=== PATIENT | female | born 1975 | race American Indian/Alaskan Native ===

== ENCOUNTER 2022-08-01 11:37 | Emergency (ER) | payer OTHER, SELFPAY ==
--- NOTE | 2022-08-01 11:42 | ED.SKABFB ---
HPI - Skin/Abscess/Foreign Bdy General Chief complaint: Wound/Laceration Stated complaint: open wound on side of left breast Time Seen by Provider: 08/01/22 11:42 Source: patient and RN notes reviewed History of Present Illness HPI narrative: Patient is a 46-year-old female who presents the urgent care with complaints of an open wound to the left breast. Patient states its been there for approximately a week and a half and just open this morning. Patient states that she does have a history of hydradenitis but this wound does not appear to be her typical abscesses. Patient states that she has been using Neosporin and Tylenol. States that the redness has increased. Denies of any fevers. No other acute complaints. No acute distress noted. Patient aware of the plan of care. Some parts of this dictation were generated by voice recognition software and may contain typographical and/or grammatical inaccuracies. Related Data Home Medications Medication Instructions Recorded Confirmed albuterol sulfate 90 mcg/actuation inhalation 08/01/22 aerosol inhaler atorvastatin 20 mg tablet mg 08/01/22 digoxin 125 mcg (0.125 mg) tablet mcg 08/01/22 doxepin 25 mg capsule mg 08/01/22 fluticasone 500 mcg-salmeterol 50 inhalation 08/01/22 mcg/dose blistr powdr for inhalation (Wixela Inhub) ipratropium bromide 17 inhalation 08/01/22 mcg/actuation HFA aerosol inhaler (Atrovent HFA) lamotrigine 200 mg tablet mg 08/01/22 metoprolol tartrate 25 mg tablet mg 08/01/22 omeprazole 20 mg capsule,delayed mg 08/01/22 release prazosin 2 mg capsule mg 08/01/22 quetiapine 300 mg tablet,extended mg PO 08/01/22 release 24 hr ranolazine 500 mg tablet,extended mg PO 08/01/22 release,12 hr ropinirole 2 mg tablet mg 08/01/22 Allergies Allergy/AdvReac Type Severity Reaction Status Date / Time Benzodiazepines AdvReac Other Verified 08/01/22 11:57 Review of Systems Review of Systems: CONSTITUTIONAL: Denies fever, chills, or sweats. EYES: Denies visual changes, redness, or discharge. ENT: Denies rhinorrhea, congestion, sore throat, or otalgia. CARDIOVASCULAR: Denies chest pain, palpitations, or edema. RESPIRATORY: Denies cough or dyspnea. GASTROINTESTINAL: Denies abdominal pain, nausea, vomiting, or diarrhea. GENITOURINARY: Denies dysuria or hematuria. SKIN: Reports of an open wound to the left breast MUSCULOSKELETAL: Denies back pain, joint pain, or myalgia. NEUROLOGIC: Denies headache, numbness, or weakness. All other systems reviewed are negative, except as documented in HPI. PMFSH Comments At the time of my signature, I reviewed and agree with the nursing past medical, surgical, social, and family history. There is no relevant family history pertinent to the patient complaint. Exam Narrative: GENERAL: This is a well-nourished, well-developed patient, in no apparent distress. HEAD: normocephalic, atraumatic. EYES: PERRL. Sclera clear/white. Vision is grossly intact. EARS: External ears normal NOSE: External nose normal with no obvious nasal discharge, nares without redness, no rhinorrhea. THROAT: Mucous membranes moist NECK: Neck supple SKIN: 2 x 2 open draining yellow serosanguineous fluid with necrotic regions to the left breast with surrounding 8 x 9 cm area of erythema and warmth NEURO: awake, alert, and oriented to person, place and time. There were no obvious focal neurologic abnormalities. EXTREMITIES: No clubbing, cyanosis, or edema. Course Course Level of Care: Express Care Visit Vital Signs Vital signs: Vital Signs Temperature 98.1 F 08/01/22 11:45 Pulse Rate 88 08/01/22 11:45 Respiratory Rate 18 08/01/22 11:45 Blood Pressure 100/68 08/01/22 11:45 Pulse Oximetry 98 08/01/22 11:45 Temperature 98.1 F 08/01/22 11:45 Pulse Rate 88 08/01/22 11:45 Respiratory Rate 18 08/01/22 11:45 Blood Pressure 100/68 08/01/22 11:45 Pulse Oximetry 98 08/01/22 11:45 Reviewed
[2022-08-01 11:45] VITALS: BP 100/68; PULSE 88; RESP 18; TEMP 36.7; O2SAT 98
== END 2022-08-01 12:05 | disposition short-term general hospital (02) ==
PROVIDERS: Emergency Provider Nurse Practitioner Family; PCP Nurse Practitioner
DX: S21.002A Unspecified open wound of left breast, initial encounter (principal); X58.XXXA Exposure to other specified factors, initial encounter; J44.9 Chronic obstructive pulmonary disease, unspecified; M79.7 Fibromyalgia
CPT/HCPCS: 99202; G0463

== ENCOUNTER 2023-09-28 13:28 | Outpatient (CLI) | payer OTHER, SELFPAY | END 2023-09-28 13:29 | disposition home or self-care (01) | LOC: ANHBWCAUD 13:28 | PROVIDERS: PCP Nurse Practitioner; Visit Provider Nurse Practitioner | DX: H90.3 Sensorineural hearing loss, bilateral (principal) | CPT/HCPCS: 92557; 92567 ==

== ENCOUNTER 2024-05-26 11:26 | Emergency (ER) | payer OTHER, SELFPAY ==
[2024-05-26 11:32] VITALS: BP 97/59; PULSE 83; RESP 18; TEMP 36.4; O2SAT 97
--- NOTE | 2024-05-26 11:32 | ED.WOUNDLAC ---
HPI - Wound/Laceration General Chief Complaint: Wound/Laceration Stated Complaint: cut right arm Time Seen by Provider: 05/26/24 11:34 Source: patient, RN notes reviewed and old records reviewed Mode of arrival: ambulatory Limitations: no limitations History of Present Illness HPI narrative: 48-year-old female presents to the [facility] with a laceration to the right upper arm. States that she cut it with a piece of glass. Unknown last tetanus Bleeding is controlled. Patient tetanus UTD: No Related Data Home Medications Medication Instructions Recorded Confirmed albuterol sulfate 90 mcg/actuation inhalation 08/01/22 aerosol inhaler atorvastatin 20 mg tablet mg 08/01/22 digoxin 125 mcg (0.125 mg) tablet mcg 08/01/22 doxepin 25 mg capsule mg 08/01/22 fluticasone 500 mcg-salmeterol 50 inhalation 08/01/22 mcg/dose blistr powdr for inhalation (Wixela Inhub) ipratropium bromide 17 inhalation 08/01/22 mcg/actuation HFA aerosol inhaler (Atrovent HFA) lamotrigine 200 mg tablet mg 08/01/22 metoprolol tartrate 25 mg tablet mg 08/01/22 omeprazole 20 mg capsule,delayed mg 08/01/22 release prazosin 2 mg capsule mg 08/01/22 quetiapine 300 mg tablet,extended mg PO 08/01/22 release 24 hr ranolazine 500 mg tablet,extended mg PO 08/01/22 release,12 hr ropinirole 2 mg tablet mg 08/01/22 budesonide 160 mcg-glycopyr 9 inh inhalation 05/26/24 mcg-formot 4.8 mcg/actuation HFA inhaler (Breztri Aerosphere) cariprazine 6 mg capsule (Vraylar) mg 05/26/24 famotidine 40 mg tablet mg 05/26/24 paroxetine HCl 30 mg tablet mg PO 05/26/24 Allergies Allergy/AdvReac Type Severity Reaction Status Date / Time Benzodiazepines AdvReac Other Verified 08/01/22 11:57 Review of Systems Review of Systems: All systems reviewed & are unremarkable except as noted in HPI and below Constitutional: Constitutional: Reports no additional constitutional complaints Eyes: Eyes: Reports no additional eye complaints ENT: Reports system reviewed and no additional complaints, except as documented Cardiovascular: Cardiovascular: Reports no additional cardiovascular complaints, Denies chest pain and Denies dyspnea Respiratory: Respiratory: Reports no additional respiratory complaints, Denies chest congestion, Denies cough and Denies dyspnea Gastrointestinal: Gastrointestinal: Reports no additional gastrointestinal complaints, Denies abdominal pain, Denies nausea and Denies vomiting Musculoskeletal: Musculoskeletal: Reports no additional musculoskeletal complaints Integumentary/Breasts: Skin/Breast: Reports as per HPI and Reports wounds Neurologic: Reports system reviewed and no additional complaints, except as documented Psychiatric: Psychiatric: Reports no additional psychiatric complaints Allergic/Immunologic: Allergic/Immunologic: Reports no additional allergic/immunologic complaints [facility] Past Medical History Medical History (Updated 05/26/24 @ 20:25 by Svitlana Garcia APRN) High cholesterol Comments At the time of my signature, I reviewed and agree with the nursing past medical, surgical, social, and family history. There is no relevant family history pertinent to the patient complaint. Exam Const: General: cooperative, no acute distress, well developed, alert, anxious, ill appearing chronically, uncomfortable and well nourished Nutritional Appearance: well nourished Orientation/consciousness: patient oriented x3 Limitations: no limitations HENMT: Head: normal to inspection Ears: hearing grossly normal bilaterally and external ears normal Face/Nose/Sinus: Normal external nose present, Normal nares present, Normal nasal mucous membranes and turbinates present, normal facial exam and face symmetric Face and sinus: normal facial exam and face symmetric Eyes: General: appearance normal, both eyes and all related structures Alignment and Position: alignment normal Periorbital: periorbital findings no
[2024-05-26] MEDS: TETANUS,DIPHTHERIA,AC PERTUSSIS ADULT (0.5 ML) BOOSTRIX IM (11:51)
== END 2024-05-26 11:58 | disposition home or self-care (01) ==
PROVIDERS: Emergency Provider Nurse Practitioner; PCP Nurse Practitioner
DX: S41.111A Laceration without foreign body of right upper arm, initial encounter (principal); W25.XXXA Contact with sharp glass, initial encounter; Z23 Encounter for immunization; E78.00 Pure hypercholesterolemia, unspecified
CPT/HCPCS: 90471; 90715; 99213; G0463

== ENCOUNTER 2025-09-02 12:12 | Emergency (ER) | payer OTHER, SELFPAY ==
--- OUTSIDE RECORDS SUMMARY | 2025-06-04 04:20 | XMS_ITS ---
Author Organization [facility] Address [address] [place] [address] Care Team Providers Care Vision Therapist Name Role Phone Kimani Crocker Primary Care Provider [phone] Allison Mcbride Unavailable [phone] REASON FOR VISIT 4 week f u- CW will be bringing Social History Sex Assigned At : Social History Observation Description Sex Assigned At Female Encounters Encounter Location Date Provider Diagnosis [address] [address] 06/04/2025 Allison Mcbride Plan Of Treatment Next Appt Details Provider Name:Allison garland, 09/12/2025 09:20:00 AM, [address] [facility], [place], [place], [address], Progress Notes * Ganga DAVIDDOB: [birth year] (50 yo F)Acc No.[id number]:06/04/2025 UNLOCKED PROGRESS NOTE Patient: Ranjit JESSICAMyrtle Ganga Provider: Faustina Mcbride, MSN, ORDER DEPARTMENT SUPERVISOR, DIRECTOR PHONE-C :1975 A ge:49 Y S ex:Female Date:06/04/2025 Address:[address], [address], [place], [place] Pcp:Kimani B Crocker Subjective: * Chief Complaints: * 1 . 4 week f u- CW will be bringing. * Medical History: Objective: * Vitals: Assessment: Plan: * Treatment: * * Electronic signature of Thang Mcbride , [id number] on 09/02/2025 at 12:15 PM GUN REPAIR CLERK Sign off status: Pending * Provider: Faustina Mcbride, VAN, ORDER DEPARTMENT SUPERVISOR, DIRECTOR PHONE-C Date: 0 06/04/2025 Generated for Gennaro barron/Spring/Baciliosmitting on: 11/02/2024 12:15 PM GUN REPAIR CLERK
--- OUTSIDE RECORDS SUMMARY | 2025-08-23 05:20 | XMS_ITS ---
Author Organization [facility] Address [address] [place] [address] Care Team Providers Care Machine Iii Coremaker Name Role Phone Kimani Crocker Primary Care Provider [phone] Allison Mcbride [phone] REASON FOR VISIT 4 week F/U Social History Sex Assigned At : Social History Observation Description Sex Assigned At Female Encounters Encounter Location Date Provider Diagnosis [address] [address] 08/23/2025 Kimani Crocker Plan Of Treatment Next Appt Details Provider Name:Allison garland, 09/12/2025 09:20:00 AM, [address] [facility], [place], [address], Progress Notes * Ganga DAVIDDOB: [birth year] (50 yo F)Acc No.[id number]:08/23/2025 UNLOCKED PROGRESS NOTE Progress Notes Patient: Ranjit PADILLA Ganga Provider: Bernadette Crocker :1975 A ge:50 Y S ex:Female Date:08/23/2025 Address:[address], [address], [place], [id number] Subjective: * Chief Complaints: * 1 . 4 week F/U. * Medical History: Objective: * Vitals: Assessment: Plan: * Treatment: * * Electronic signature of Geena Crocker , [id number] on 09/02/2025 at 12:15 PM MARKLOGIC DEVELOPER Sign off status: Pending * Provider: Bernadette Crocker Date: Generated for Gennaro barron/Spring/Gonzalo on: 11/02/2024 12:15 PM MARKLOGIC DEVELOPER
--- OUTSIDE RECORDS SUMMARY | 2025-08-31 04:40 | XMS_ITS ---
Author Organization [facility] Address [address] [place] [address] Care Team Providers Care Test Technician Name Role Phone Kimani Crocker Primary Care Provider [phone] Allison Mcbride Unavailable [phone] Allergies Allergen (clinical drug ingredient) Drug/Non Drug Allergy documented on EMR Reaction Allergy Type Onset Date Status benzodiazepine (FN) Benzodiazepines Unknown Drug Allergy Active REASON FOR VISIT 4 week follow up Medications Medication SIG (Take, Route, Frequency, Duration) Notes Start Date End Date Status Rexulti 2 MG 1 tablet Orally Once a day; Duration: 90 days Active Eszopiclone 2 MG 1 tablet immediately before bedtime Orally Once a day; Duration: 30 days Approval until 08/06/26. 08/06/2025 Active Albuterol Sulfate HFA 108 (90 Base) MCG/ACT INHALE 2 PUFFS EVERY FOUR HOURS; Duration: 16 Active PARoxetine HCl 40 MG 1 tablet in the morning Orally Once a day; Duration: 90 days Active Benztropine Mesylate 1 MG 1 tablet Orally Once a day; Duration: 90 days Active ZyPREXA Zydis 5 MG 1 tablet on the tongue and allow to dissolve Orally Once a day IF NEEDED; Duration: 90 days Active OLANZapine 5 mg DISSOLVE 1 TABLET BY MOUTH DAILY IF NEEDED; Duration: 30 Active lamoTRIgine 100 MG 2.5 tablets Orally Once a day; Duration: 90 days Active Mirtazapine 30 MG 1 tablet at bedtime Orally Once a day; Duration: 90 days Active Prazosin HCl 2 MG 2 capsules at bedtime Orally Once a day; Duration: 90 days Active Atorvastatin Calcium 20 mg TAKE 1 TABLET BY MOUTH DAILY; Duration: 28 days Active Phentermine HCl 37.5 MG 1 capsule Orally Once a day; Duration: 30 days 08/31/2025 Active Vitamin D3 50 MCG (1999) TAKE 1 TABLET BY MOUTH DAILY; Duration: 28 days Active Levothyroxine Sodium 75 MCG TAKE 1 TABLET BY MOUTH EVERY MORNING ON AN EMPTY STOMACH; Duration: 28 days Active Pantoprazole Sodium 40 MG 1 tablet 1/2 to 1 hour before morning meal Orally Once a day; Duration: 30 days FOR IBRAHIM'S ESOPHAGUS CONFIRMED BY BIOPSY 04/18/2025 Active Spiriva Respimat 2.5 MCG/ACT 2 puffs Inhalation Once a day Active Dulera 100-5 MCG/ACT as directed Inhalation Active Social History Tobacco Use: Social History Observation Description Date Details (start date - stop date) Current Smoker NA - NA Sex Assigned At : Social History Observation Description Sex Assigned At Female Alcohol Screen (Audit-C) Question Answer Notes Did you have a drink containing alcohol in the p ast year? Yes PRAPARE Question Answer Notes Date Completed/Updated: 04/13/2025 What is your current housing situation? I have h ousing Are you worried about losing your housing? No What is the highest level of school that you have finished? Less than a high school degree What is your current work situation? 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 Check all that apply I do not have problems meeting my needs Has lack of transportation k ept you from medical appointments, meetings, work or from getting things needed for daily living? No How often do you see or talk to people that you care about and feel close to? (For example: talking to friends on the phone, visiting friends or family, going to orthodox or club meetings) More than 5 times a week How stressed are you? Stress is when someone feels tense, nervous, anxious, or can\t sleep at night because their mind is troubled Somewhat In the past year have you sp ent more than 2 nights in a row in a senior living, fpc, fdc center, or juvenile correctional facility? No Do you feel physically and e motionally safe where you currently live? Yes In the past year, have you b een afraid of your partner or ex-partner? I have not had a partner in the past year PRAPARE Score: 6 Tobacco Control (Standard) Question Answer Notes Tobacco use: Current smoker How many cigarettes a day do you smoke? 21-30 Additional Findings: Tobacco user Rolls own cigarettes,Heavy cigarette smoker (20-39 cigs/day) Vital Signs Weight 210.0 lb lbs 08/31/2025 Height 61 in in 08/31/2025 BMI 39.67 kg/m2 08/31/2025 Blood pressure systolic 122 mm Hg 08/31/20 25 Blood pressure diastolic 70 mm Hg 025 Heart Rate 105 /min 08/31/2025 Oximetry 96 % 08/31/2025 Respiratory Rate 18 /min 08/31/2025 Encounters Encounter Location Date Provider Diagnosis [address] [place] [address] 08/31/2025 Kimani Crocker Obesity (BMI 30-39.9) E66.9 Assessments Encounter Date Diagnosis (ICD Code) Assessment Notes Treatment Notes Treatment Clinical Notes Section Notes 08/31/2025 Obesity (BMI 30-39.9) (ICD-10 - E66.9) Plan Of Treatment Medication Medication Name Sig Start Date Stop Date Notes Phentermine HCl 37.5 MG 1 capsule Orally Once a day; Duration: 30 days 08/31/2025 Next Appt Details Follow Up: 2 Months, Reason: wt control Provider Name:Allison garland, 09/12/2025 09:20:00 AM, [address] [place] [address] , [place], [address], Progress Notes * Ganga DAVIDDOB: [birth year] (50 yo F)Acc No.[id number]:08/31/2025 UNLOCKED PROGRESS NOTE Progress Notes Patient: Ganga ZIMMER Provider: Bernadette Crocker :1975 A ge:50 Y S ex:Female Date:08/31/2025 Address:[address], [address], [place], [place]-[id number] Check In:10:41 AM 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 4 week follow up. * HPI: I nterim History: Emergency room visit N o. Was hospitalized N o. F/u wt loss. Ran out of phentermine. Was helping appetite. Eating more fruits and vegetables. Not doing exercise. Trying some chair yoga. [employer] found breast mass. Having bx soon. CAM to do injections in back 09/29. Had f/u screening CT of lungs. No issues reported. D epression Screening: PHQ-9 L ittle interest or pleasure in doing things?Nearly every day F eeling down, depressed, or hopeless N early every day T rouble falling or staying asleep, or sleeping too much N early every day F eeling tired or having little energy N early every day P oor appetite or overeating N early every day F eeling bad about yourself or that you are a failure, or have let yourself or your family down N early every day T rouble concentrating on things, such as reading the newspaper or watching television N early every day M oving or speaking so slowly that other people could have noticed; or the opposite, being so fidgety or restless that you have been moving around a lot more than usual N ot at all T houghts that you would be better off or of hurting yourself in some way N ot at all T otal Score 2 1 I nterpretation S evere Depression Intervention D epression Screening Findings P ositive F ollow-Up for Depression N o Referral necessary, patient involved in behavioral health treatment . S creening: Harney Suicide Severity Rating Scale (LF) D o you want to initiate with S creener form 1 . Wish to be : Have you wished you were or wished you could go to sleep and not wake up? N o 2 . Suicidal Thoughts: Have you actually had any thoughts of killing yourself? N o 6 . Suicide Behavior Question: Have you ever done anything,started to do anything, or prepared to end your life? N o I nterpretation: L ow Risk C SSRS Interpretation and Follow Up Plan: CSSRS Interpretation and Follow Up Plan C SSRS Screen documented using SF Y es R isk Disposition from SF L ow - No Follow Up Plan Required F ollow Up Plan N o Follow Up Plan required at this time. T imeframe of Screening T armen * ROS: B asic ROS: Denies W eight loss or gain. * Medical History: B ipolar, Ptsd, Copd, Multiple personality disorder, Fybromyalgia, Arthritis, Asthma, Spinal stinosis, Degenerative disk, Herniated disk. * Surgical History: T ubes tied 1997, heart ablasion 2002, heart ablasion 2006, cardiac cath 2016, cardiac cath 2021, cholecystectomy 03/2023, tumor removed R thumb . * Hospitalization/Major Diagno stic Procedure: 2 births 1993, vaginal 1995, vaginal 1997, abscess to face 11/2020, vertigo - [facility] 04/2023. * Family History: F ather: . M other: . 3 son(s) , 1 daughter(s) - healthy. . Mother: : committed suicide 2 half brother: thyroid issues Son: possible undiagnosed bipolar. * Social History: P nany Social History: L iving Arrangement L iving Arrangement: I ndependent Living Alcohol Use A lcohol Use Frequency: N ever Illicit Substance Usage I llicit Substance Usage: Y es S ubstance Used: C annabis Employment Status E mployment Status: O n Disability Single Question Alcohol Screening H ow many times in the past year have you had (4 for women, or 5 for men) or more drinks in a day? 0 S ocial Determinants: P RAPARE D ate Completed/Updated: 0 04/13/2025 W hat is your current housing situation? I have housing A re you worried about losing your housing??No W hat is the highest level of school that you have finished? L ess than a high school degree W hat is your current work situation? 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 Check all that apply I do not have problems meeting my needs H as lack of transportation kept you from medical appointments, meetings, work or from getting things needed for daily living? N o H ow often do you see or talk to people that you care about and feel close to? (For example: talking to friends on the phone, visiting friends or family, going to orthodox or club meetings) M ore than 5 times a week H ow stressed are you? Stress is when someone feels tense, nervous, anxious, or can\t sleep at night because their mind is troubled S omewhat I n the past year have you spent more than 2 nights in a row in a senior living, fpc, fdc center, or juvenile correctional facility? N o D o you feel physically and emotionally safe where you currently live? Y es I n the past year, have you been afraid of your partner or ex-partner? I have not had a partner in the past year P RAPARE Score: 6 T obacco Use: T obacco Control (Standard) T obacco use: C urrent smoker H ow many cigarettes a day do you smoke? 2 1-30 A dditional Findings: Tobacco user R olls own cigarettes,Heavy cigarette smoker (20-39 cigs/day) D rugs/Alcohol: D rugs H ave you used drugs other than those for medical reasons in the past 12 months? N o Alcohol Screen (Audit-C) D id you have a drink containing alcohol in the past year? Y es M iscellaneous: D omestic violence: No. Method of learning P referred method of learning: Myrtle camacho,Discussion,Hearing * Medications: T aking Spiriva Respimat 2.5 MCG/ACT Aerosol Solution 2 puffs Inhalation Once a day , Taking Dulera 100-5 MCG/ACT Aerosol as directed Inhalation , Taking Pantoprazole Sodium 40 MG Tablet Delayed Release 1 tablet 1/2 to 1 hour before morning meal Orally Once a day , Notes to Pharmacist: FOR IBRAHIM'S ESOPHAGUS CONFIRMED BY BIOPSY, Taking Atorvastatin Calcium 20 mg Tablet TAKE 1 TABLET BY MOUTH DAILY , Taking Vitamin D3 50 MCG (2000 UT) Tablet TAKE 1 TABLET BY MOUTH DAILY , Taking Levothyroxine Sodium 75 MCG Tablet TAKE 1 TABLET BY MOUTH EVERY MORNING ON AN EMPTY STOMACH , Taking OLANZapine 5 mg Tablet Disintegrating DISSOLVE 1 TABLET BY MOUTH DAILY IF NEEDED , Taking lamoTRIgine 100 MG Tablet 2.5 tablets Orally Once a day , Taking Mirtazapine 30 MG Tablet 1 tablet at bedtime Orally Once a day , Taking Prazosin HCl 2 MG Capsule 2 capsules at bedtime Orally Once a day , Taking ZyPREXA Zydis 5 MG Tablet Disintegrating 1 tablet on the tongue and allow to dissolve Orally Once a day IF NEEDED , Taking PARoxetine HCl 40 MG Tablet 1 tablet in the morning Orally Once a day , Taking Benztropine Mesylate 1 MG Tablet 1 tablet Orally Once a day , Taking Rexulti 2 MG Tablet 1 tablet Orally Once a day , Taking Eszopiclone 2 MG Tablet 1 tablet immediately before bedtime Orally Once a day , Notes to Pharmacist: Approval until 08/06/26., Taking Albuterol Sulfate HFA 108 (90 Base) MCG/ACT Aerosol Solution INHALE 2 PUFFS EVERY FOUR HOURS , Taking Phentermine HCl 37.5 MG Capsule 1 capsule Orally Once a day * Allergies: B enzodiazepines. Objective: * Vitals: I nitials: dt, Wt:210.0 lb, Ht: 61 in, BMI:39.67, BP:122/70, HR:105, Oxygen sat %:96, RR:18, LMP: taran, Pain scale:8. * Examination: G eneral Examination: GENERAL APPEARANCE: w ell developed, well nourished, in no acute distress. Assessment: * Assessment: 1. O besity (BMI 30-39.9) - E66.9 (Primary) Plan: * Treatment: * Recommended Wellness and Pre vention Guidelines: * S berenice casas L ast Done N ext Due A ction Taken N ONCOMPLIANT A lcohol use screening - 1 - - N ONCOMPLIANT A sthma symptom assessment - 1 - - N ONCOMPLIANT B reast cancer screening - 1 - - N ONCOMPLIANT C ervical cancer screening - 1 - - N ONCOMPLIANT C holesterol control (genl pop) 0 04/16/2025 1 - - N ONCOMPLIANT C olorectal cancer screening - 1 - - N ONCOMPLIANT D epression followup 1 1 - - N ONCOMPLIANT H IV screening - 1 - - N ONCOMPLIANT I nfluenza vaccine (over 50) 1 1 - - * Procedure Codes: 3 008F BODY MASS INDEX DOCD, [address] [facility] [address], [place], [address] BEHAV CHNG SMOKING 3-10 MIN * Preventive Medicine: Counseling: C are goal follow-up plan: BMI management provided Y es Above Normal BMI Follow-up L ifestyle education regarding diet S MOKING: Patient counselled on the dangers of tobacco use and urged to quit. 1 . * Follow Up: 2 Months (Reason: wt control) * * Electronic signature of Geena dada Crocker , [id number] on 09/02/2025 at 12:15 PM BOILERMAKER FITTER Sign off status: Pending * Provider: eBrnadette Crocker Date: Generated for Gennaro barron/Spring/Gonzalo on: 11/02/2024 12:15 PM BOILERMAKER FITTER History and Physical Notes * HPI (History of Present Illness) Category Sub-Category Detail Notes Category Not es Interim History Was hospitalized No F/u wt loss. Ran out of phentermine. Was helping appetite. Eating more fruits and vegetables. Not doing exercise. Trying some chair yoga. [employer]GER [employer] found breast mass. Having bx soon. CAM to do injections in back 09/29. Had f/u screening CT of lungs. No issues reported. Emergency room visit No Depression Screening PHQ-9 Little inte rest or pleasure in doing things: Nearly every day Feeling down, depressed, or hopeless: Ne faby every day Trouble falling or staying asleep, or sl eeping too much: Nearly every day Feeling tired or having little energy: N early every day Poor appetite or overeating: Nearly ever y day Feeling bad about yourself o r that you are a failure, or have let yourself or your family down: Nearly every day Trouble concentrating on thi ngs, such as reading the newspaper or watching television: Nearly every day Moving or speaking so slowly that other people could have noticed; or the opposite, being so fidgety or restless that you have been moving around a lot more than usual: Not at all Thoughts that you would be b adam off or of hurting yourself in some way: Not at all Total Score: 21 Interpretation: Severe Depression Intervention Depression Screening Findings: P ositive Follow-Up for Depression: No Referral necessary, patient involved in behavioral health treatment . Screening Harney Suicide Sev erity Rating Scale (LF) Do you want to initiate with: Screener form 1. Wish to be : Have you wished you were or wished you could go to sleep and not wake up?: No 2. Suicidal Thoughts: Have you actually had any thoughts of killing yourself?: No 6. Suicide Behavior Question: Have you ever done anything,started to do anything, or prepared to end your life?: No Interpretation:: Low Risk CSSRS Interpretation and Follow Up Plan CSSRS Interpretation and Follow Up Plan CSSRS Screen documented using SF: Yes Risk Disposition from SF: Low - No Follo w Up Plan Required Follow Up Plan: No Follow Up Plan requir ed at this time. Timeframe of Screening: Today Examination Category Sub-Category Detail Notes Category Not es General Examination GENERAL APPEARANCE: well dev eloped, well nourished, in no acute distress
--- OUTSIDE RECORDS SUMMARY | 2025-09-02 12:15 | XMS_ITS | Encounter Summary ---
Author Organization [facility] Address [address] [place] [address] Care Team Providers Care Stonecutter Assistant Name Role Phone Mj Leigh MD Unavailable [phone] José Miguel Blake DMD Unavailable [phone] Kimani Crocker MD Primary Care Provider [phone] Encounter Details Date Type Department Care Team (Late st Contact Info) Description 08/30/2025 Results Follow-Up [facility] Pulmonary at [address] [place] [address] Marline Thomas, DIPLOMA MAKER [address] [place] [address] [address] [place] [address] CT Lung Cancer Screening Social History Tobacco Use Types Packs/Day Years Used Date Smoking Tobacco: Every Day Cigarettes 0.5 34.8 Started: 09/08/1990; Last attempted to quit: 09/01/2022 Smokeless Tobacco: Never Comments:Smoking History Pac ks/day: 1 Packs, Counseling given, contact pcp for assistance with quitting 08/18/23 reports smoking 10-15 cigarettes per day 01/18/24 reports 15 cigarettes a day x 6 months Alcohol Use Standard Drinks/Week Comments Not Currently 0 (1 standard drink = 0.6 oz pur e alcohol) PHQ-2 Answer Date Recorded PHQ-2 Total Score (If total score is 3 or more points, staff should administer the PHQ-9) 0 10/11/2020 AUDIT-C Answer Date Recorded Q1: How often do you have a drink containing alc ohol? Never 08/27/2025 Average Number of Drinks Not on file 025 Frequency of Binge Drinking Not on file 08/02 Personal Safety Answer Date Recorded Have you ever been in or are you currently in a harmful physical or emotional relationship or is someone making you feel afraid or unsafe? 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 Author CCM Chronic Pain Care Plan Chronic Care Management No Blanca Deluca, RN Note: Problem: Chronic Pain Goals: 1. Minimize further functional decline 2. Maximize quality of life 3. Control pain Strategies: - Activity/exercise program recommendation - Conservative stepwise pain medicine strategy with multi-disciplinary approach - Recommend healthy lifestyle strategies and compensatory methods as needed documented as of this encounter Visit Diagnoses Not on filedocumented in this encounter Care Teams Stonecutter Assistant Relationship Specialty Start Date End Date Kimani Crocker MD [address] [place] [id number] PCP - General Internal Medicine 05/14/25 Mj Leigh MD Consulting Physician Cardiology 10/14/20 José Miguel Blake DMD [address] [place] [id number] Surgeon Oral Surgery 02/23/21 documented as of this encounter
--- OUTSIDE RECORDS SUMMARY | 2025-09-02 12:15 | XMS_ITS | Clinical Summary ---
Author Organization [facility] Address [address] [place] [address] Phone Care Team Providers Care [employer] System Name Role Phone Mj Leigh MD Unavailable [phone] Crispin Cool MD Unavailable [phone] Adilson Hu MD Unavailable [phone] Kimani Crocker MD Primary Care Provider [phone] Allergies Active Allergy Reactions Criticality Noted Date Comments Diazepam Other (see Comments) 10/11/2016 PSYCHOSIS Alprazolam Other (see Comments) 12/05/2015 psychosis Medications busPIRone (BUSPAR) 5 MG Tablet Take 30 mg by mouth 2 times daily. Active aspirin 325 MG TabletIndication s:Insomnia due to medical condition,Fibrom yalgia,Thrombocy tosis Take 325 mg by mouth daily. Active Apple Cider Vinegar 500 MG TabletIndication s:Insomnia due to medical condition,Fibrom yalgia,Thrombocy tosis Take 500 mg by mouth 2 times daily. Active Doxycycline Monohydrate 100 MG Capsule Take by mouth 2 times daily. 7 Active Benzoyl Peroxide 10 % Liquid Use as wash for axilla, inframammilary, buttocks, and inguinal area 1-2 times daily. 7 Active erythromycin with ethanol 2 % Solution Apply. 7 Active Cyanocobalamin (VITAMIN B 12 PO) Take by mouth daily. Active chlorzoxazone (PARAFON FORTE) 500 MG Tablet Take 0.5 Tabs by mouth 2 times daily as needed for Muscle spasms. 60 Tab 3 9 Active vitamin D (CHOLECALCIFEROL ) 1000 UNIT Tablet Take 50,000 Units by mouth daily. Active nitroGLYCERIN (NITROSTAT) 0.4 MG SL Tablet 1 Tab by Sublingual route every 5 minutes as needed for Chest pain. 10 Tab 9 Active metoprolol tartrate (LOPRESSOR) 100 MG Tablet Take 1 Tab by mouth 2 times daily. 180 Tab 3 9 Active levothyroxine (SYNTHROID) 75 MCG Tablet TAKE ONE TABLET BY MOUTH EVERY DAY 90 Tab 2 9 Active furosemide (LASIX) 20 MG TabletIndication s:Dependent edema TAKE ONE TABLET BY MOUTH EVERY DAY NEEDED FOR SWELLING 90 Tab 2 9 Active fluticasone (FLONASE) 50 MCG/ACT Suspension USE 2 SPRAYS IN EACH NOSTRIL DAILY DIRECTED 16 g 8 9 Active ziprasidone (GEODON) 20 MG CapsuleIndicatio ns:Schizophrenia , unspecified type TAKE ONE CAPSULE BY MOUTH TWICE A DAY WITH MEALS 60 Cap 9 Active DULoxetine (CYMBALTA) [address] Particles TAKE TWO CAPSULES BY MOUTH EVERY DAY 60 Cap 9 Active nicotine (NICODERM CQ) 21 MG/24HR PATCH 24 HR 1 Patch by Transdermal route every 24 hours. 28 Patch 9 Active ALBUTEROL 108 (90 Base) MCG/ACT Aerosol Solution INHALE TWO PUFFS BY MOUTH EVERY 6 HOURS NEEDED FOR WHEEZING 2 Inhaler 0 Active fluticasone-salm eterol (ADVAIR) 250-50 MCG/DOSE AEROSOL POWDER, BREATH ACTIVATED INHALE ONE PUFF BY MOUTH TWICE A DAY 60 Each 5 0 Active gabapentin (NEURONTIN) 300 MG CapsuleIndicatio ns:Fibromyalgia Take 1 Cap by mouth 4 times daily. 120 Cap 3 0 Active topiramate (TOPAMAX) 25 MG Tablet TAKE TWO TABLETS BY MOUTH TWICE A DAY 120 Tab 3 0 Active dilTIAZem (CARDIZEM CD) 180 MG CAPSULE SR 24 HRIndications:Te ndinitis Take 1 Cap by mouth daily. 90 Cap 1 0 Active meloxicam (MOBIC) 15 MG TabletIndication s:Tendinitis Take 1 Tab by mouth daily. 90 Tab 1 0 Active potassium chloride CR (KLORCON) 10 MEQ Tablet Controlled ReleaseIndicatio ns:Hypothyroidis m, unspecified type Take 1 Tab by mouth daily. 90 Tab 3 0 Active Active Problems Problem Noted Date Diagnosed Date Bipolar disorder 02/22/2019 COPD (chronic obstructive pulmonary disease) PTSD (post-traumatic stress disorder) 02/22/2019 Schizophrenia 02/22/2019 History of substance abuse 02/22/2019 Hidradenitis suppurativa 02/22/2019 Hypothyroidism 02/22/2019 Mild intermittent asthma without complication Leukemoid reaction 04/12/2017 Thrombocytosis 04/12/2017 Insomnia due to medical condition 03/01/2017 Vitamin D deficiency 01/19/2017 Migraine with aura and witho ut status migrainosus, not intractable 12/08/2016 Tobacco use disorder 11/25/2016 Non morbid obesity due to excess calories 2016 Chronic pain 10/28/2016 Fibromyalgia 10/28/2016 Left shoulder pain 10/28/2016 Tremor 10/28/2016 Memory loss 10/28/2016 Tendonitis of elbow, right Overview (10/15/2015): Will treat with nsaids and eccentric exercises for now Cubital tunnel syndrome Overview (10/15/2015): Not likely contributing to her main symptoms at this point Resolved Problems Problem Noted Date Diagnosed Date Resolved Date Cough 11/25/2016 02/22/2019 Cocaine abuse 11/25/2016 02/22/2019 Encounters Date Type Department Care Team Description 06/26/2025 Documentation Only [facility] [address] [place] [address] Kimani Crocker MD from Last 3 Months Immunizations Immunization Administration Dates Next Due Influenza Vaccine 08/21/2016 Influenza Vaccine greater than 3 yrs 08/21/2016 Influenza Vaccine, Quadrivalent, PF 07/21/2019,1 ,09/09/2015 Influenza Vaccine,unspecified Formulation 2015 Influenza, Seasonal, Injectable, Undefined 09/01 Pneumococcal Vaccine - 13 Valent 08/21/2016 Pneumococcal Vaccine Adult - 23 Valent 6,09/16/2012 Pneumococcal Vaccine, Unspec ified Formulation 08/20/2016 Family History Medical History Relation Name Comments Cancer Brother bone Breast Cancer Maternal Aunt 1 Breast Cancer Maternal Aunt 2 Breast Cancer Maternal Aunt 3 Breast Cancer Mother Relation Name Status Comments Brother Father Maternal Aunt 1 Maternal Aunt 2 Maternal Aunt 3 Mother Social History Tobacco Use Types Packs/Day Years Used Date Smoking Tobacco: Every Day Cigarettes Smokeless Tobacco: Never Tobacco Cessation:Ready to Q uit: No; Counseling Given: Yes Alcohol Use Standard Drinks/Week Comments Yes 0 (1 standard drink = 0.6 oz pur e alcohol) occasionally PHQ-2 Answer Date Recorded PHQ-2 Score 21 07/11/2019 Comments No Sex and Gender Information Value Date Recorded Sex Assigned at Not on file Legal Sex Female 11:39 PM CDT Gender Identity Not on file Sexual Orientation Not on file Last Filed Vital Signs Vital Sign Reading Time Taken Comments Blood Pressure 102/69 10/11/2020 10:15 PM PROCUREMENT DIRECTOR Pulse 76 10/11/2020 10:15 PM PROCUREMENT DIRECTOR Temperature 37.2 C (98.9 F) 10/11/2020 10:25 PM PROCUREMENT DIRECTOR Respiratory Rate 19 10/11/2020 10:1 5 PM PROCUREMENT DIRECTOR Oxygen Saturation 97% 10/11/2020 10: 15 PM PROCUREMENT DIRECTOR Inhaled Oxygen Concentration - - Weight 78.8 kg (173 lb 11.2 oz) 07/21/2019 2:08 PM CDT Height 156.2 cm (5' 1.5) 07/21/2019 2:08 PM CDT Body Mass Index 32.29 07/21/2019 2:08 PM CDT Plan of Treatment Health Maintenance Due Date Last Done Comments Hepatitis B Immunization (1 of 3 - 19+ 3-dose series) 1994 Pap Smear 1996 Cervical Cancer Screening (CCS) 2005 HPV/Cotest 2005 Cologuard 2020 Immunochemical Fecal Occult Blood 2020 Mammogram 07/07/2024 07/07/2023, 04/02, 07/19/2020, Additional history exists Influenza Immunization (#1) 07/02/202509/01, 10/14/2022, 09/09/2021, Additional history exists SARS-COV-2 Immunization ( season) 2025 09/15/2023, 11/08/2021, 03/20/2021, Additional history exists Zoster Immunization (1 of 2) 2025 Colonoscopy 06/09/2034 06/09/2024 Colorectal Cancer Screening 06/09/2034 Respiratory Syncytial Virus (RSV) Immunization (Adult) (1 - 1-dose 75+ series) 2050 Hepatitis C Virus (HCV) Screening Completed 07/21/2019 Pneumococcal Immunization (50+ years) Completed 10/14/2022, 08/21/2016, 08/21/2016, Additional history exists Pneumococcal Immunization Combined Discontinued 10/14/2022, 08/21/2016, 08/21/2016, Additional history exists Discussion re Starting/Frequency of Mammograms Discontinued 01/21/2024, 08/16/2023, 07/07/2023, Additional history exists TdaP Immunization Completed 05/26/2024 Human Papillomavirus (HPV) Immunization Aged Out No longer eligible based on patient's age to complete this topic Meningococcal Immunization (ACWY) Aged Out No longer eligible based on patient's age to complete this topic Rotavirus Immunization Aged Out No lo nger eligible based on patient's age to complete this topic Procedures Procedure Name Priority Date/Time Associated Diagnosis Comments CHASIDY SCREENING BILATERAL DIGITAL W CAD W SHADI Routine 04/22/2022 5:33 PM CDT Encounter for screening mammogram for malignant neoplasm of breast HEPATITIS PANEL ACUTE (AHP) Routine 07/21/2019 3:16 PM CDT Exposure to hepatitis C from Last 3 Months or Most Recently Relevant to Health Maintenance Results * CHASIDY SCREENING BILATERAL DIGITAL W CAD W SHADI (04/22/2022 5:33 PM CDT) Anatomical Region Laterality Modality breast Bilateral Mammography 04/22/2022 5:14 PM CDT Narrative 04/30/2022 5:25 PM CDT - CHASIDY SCREENING BILATERAL DIGITAL W CAD W SHADI BILATERAL DIGITAL SCREENING MAMMOGRAM 3D/2D WITH CAD WITH MEDIOLATERAL OBLIQUE CRANIOCAUDAL: 04/22/2022 The study was acquired using digital technology and interpreted from soft copy. Current study was also evaluated with ICAD version 7.2. 2D digital mammographic views, as well as 3D digital tomosynthesis were performed in the CC and MLO projections. CLINICAL: Routine screening. Patient has no breast complaints. Personal history of cervical cancer. Mother and three maternal aunts with breast cancer. COMPARISONS: Comparison is made to exams dated: 11/13/2016 [facility], 12/09/2009 [facility], and 07/19/2020 [facility]. BREAST TISSUE:There are scattered fibroglandular densities in both breasts. FINDINGS: No significant masses, calcifications, or other findings are seen in either breast. There has been no significant interval change. IMPRESSION: BI-RAD 1 NEGATIVE There is no mammographic evidence of malignancy. A 1 year screening mammogram is recommended. A letter will be sent to the patient with these results. The patient will be entered into a reminder system with a target due date of 1 year for her next screening exam. Electronically signed by: Chris castaneda/grant:04/30/2022 16:49:30 Garment Worker(s): RT Jos(Myrtle)(M), [facility] letter sent: Normal Exam Reading location: [facility] BI-RADS: 1 Negative Procedure Note Chris Steve MD - 04/30/2022 - CHASIDY SCREENING BILATERAL DIGITAL W CAD W SHADI BILATERAL DIGITAL SCREENING MAMMOGRAM 3D/2D WITH CAD WITH MEDIOLATERAL OBLIQUE CRANIOCAUDAL: 04/22/2022 The study was acquired using digital technology and interpreted from soft copy. Current study was also evaluated with ICAD version 7.2. 2D digital mammographic views, as well as 3D digital tomosynthesis were performed in the CC and MLO projections. CLINICAL: Routine screening. Patient has no breast complaints. Personal history of cervical cancer. Mother and three maternal aunts with breast cancer. COMPARISONS: Comparison is made to exams dated: 11/13/2016 [facility], 12/09/2009 [facility], and 07/19/2020 [facility]. BREAST TISSUE:There are scattered fibroglandular densities in both breasts. FINDINGS: No significant masses, calcifications, or other findings are seen in either breast. There has been no significant interval change. IMPRESSION: BI-RAD 1 NEGATIVE There is no mammographic evidence of malignancy. A 1 year screening mammogram is recommended. A letter will be sent to the patient with these results. The patient will be entered into a reminder system with a target due date of 1 year for her next screening exam. Electronically signed by: Chris castaneda/penrad:04/30/2022 16:49:30 Garment Worker(s): RT Jos(R)(M), [facility] letter sent: Normal Exam Reading location: [facility] BI-RADS: 1 Negative us Joaquin Padilla MD IMG MAMMO ORDERABLES F inal Result * HEPATITIS PANEL ACUTE (AHP) (07/21/2019 3:16 PM CDT) HEPATITIS A IGM ANTIBODY NON DETECTED NON DETECTED 07/21/2019 10:16 PM CDT [facility] Comment: IGM Antibodies to HAV not detected. Does not exclude early acute or recovered HAV infection. HEP B CORE AB (IGM) NON DETECTED NON DETECTED 07/21/2019 10:16 PM CDT [facility] Comment: IGM anti-HBC not detected. Does not exclude the possibility of exposure to or infection with HBV. HEPATITIS B SURFACE ANTIGEN NON DETECTED NON DETECTED 07/21/2019 10:16 PM CDT [facility] Comment: A nonreactive test result does not exclude the possibility of exposure to or infection with Hepatitis B virus. A nonreactive test result in individuals with prior exposure to hepatitis B may be due to antigen levels below the detection limit of this assay or lack of antigen reactivity to the antibodies in this assay. hepatitis C antibody 0.18 <1 S/CO 07/21/2019 10:16 PM CDT [facility] Comment: Signal/Cutoff ratio < 0.79 is Nondetected Signal/Cutoff ratio 0.80-0.99 is Grayzone Signal/Cutoff ratio > 0.99 is Detected Supplemental assays are recommended if signal/cutoff ratio is >/=1.00. Signal/cutoff ratio result >/= 5.00 is 97% predictive of positivity for recombinant immunoblot assay (RIBA) and will be reported to the [place] [facility] Public [facility] as required. Blood specimen (specimen) Venipuncture / Unknown 07/21/2019 3:16 PM CDT 07/21/2019 3:16 PM CDT us Mario Foster APRN, CNP HEMATOLOGY ORDER RUFINO Final Result [facility] [address] [place] [address], [place] from Last 3 Months or Most Recently Relevant to Health Maintenance Insurance [employer] Care Teams Advanced Seal Delivery System Relationship Specialty Start Date End Date Kimani Crocker MD [address] [place] [address] PCP - General Internal Medicine 04/13/25 Mj Leigh MD Behavioral Health Director 08/20/17 Crispin Cool MD [address] [place] [address] [address] [place] [address] Consulting Physician Psychiatry 08/20/17 Adilson Hu MD [address] [place] [address] [address] [place] [address] Consulting Physician Dermatology 08/20/17
--- OUTSIDE RECORDS SUMMARY | 2025-09-02 12:16 | XMS_ITS | Patient Health Record ---
Author Organization [facility] Address [address] [place] [address] Care Team Providers Care Rn Pediatric Icu Name Role Phone Kimani Crocker Primary Care Provider [phone] Allison Mcbride Unavailable [phone] Ayad Sutherland Unavailable [phone] Muriel Nieto Unavailable [phone] Zoey Brooks Unavailable [phone] Jackie Lee Unavailable [phone] Allergies Allergen (clinical drug ingredient) Drug/Non Drug Allergy documented on EMR Reaction Allergy Type Onset Date Status benzodiazepine (FN) Benzodiazepines Unknown Drug Allergy Active Results Component Value Reference Range Notes CBC With Differential/Platel et* Reviewed date:04/20/2025 09:07:41 AM Interpretation: Performing Lab:[facility], [address], [place], Phone - [phone], Director - PhDR[facility] Notes/Report: WBC 14.5 3.4-10.8 x10E3/uL RBC 4.66 3.77-5.28 x10E6/uL Hemoglobin 15.2 11.1-15.9 g/dL Hematocrit 46.7 34.0-46.6 % MCV 100 79-97 fL MCH 32.6 26.6-33.0 pg MCHC 32.5 31.5-35.7 g/dL RDW 14.3 11.7-15.4 % Platelets 363 150-450 x10E3/uL Neutrophils 72 Not Estab. % Lymphs 20 Not Estab. % Monocytes 6 Not Estab. % Eos 1 Not Estab. % Basos 1 Not Estab. % Neutrophils (Absolute) 10.4 1.4-7.0 x10E3/uL Lymphs (Absolute) 3.0 0.7-3.1 x10E3/uL Monocytes(Absolute) 0.9 0.1-0.9 x10E3/uL Eos (Absolute) 0.1 0.0-0.4 x10E3/uL Baso (Absolute) 0.1 0.0-0.2 x10E3/uL Immature Granulocytes 0 Not Estab. % Immature Grans (Abs) 0.0 0.0-0.1 x10E3/uL Iron and TIBC* Reviewed date:04/20/2025 09:07:41 AM Interpretation: Performing Lab:[facility] [address], Phone - [phone], Director - [facility] Notes/Report: Iron Bind.Cap.(TIBC) 329 250-450 ug/dL UIBC 257 131-425 ug/dL Iron 72 27-159 ug/dL Iron Saturation 22 15-55 % TSH Rfx on Abnormal to Free T4 Reviewed date:04/20/2025 09:07:41 AM Interpretation: Performing Lab:[facility] [address], Phone - [phone], Director - [facility] Notes/Report: TSH 2.970 0.450-4.500 uIU/mL CMP 14 Comprehensive Metabol ic Panel* Reviewed date:04/20/2025 09:07:41 AM Interpretation: Performing Lab:[facility] [address], Phone - [phone], Director - [facility] Notes/Report: Glucose 70 70-99 mg/dL BUN 11 6-24 mg/dL Creatinine 0.79 0.57-1.00 mg/dL eGFR 92 >59 mL/min/1.73 BUN/Creatinine Ratio 14 9-23 Sodium 139 134-144 mmol/L Potassium 4.6 3.5-5.2 mmol/L Chloride 104 96-106 mmol/L Carbon Dioxide, Total 18 20-29 mmol/L Calcium 9.1 8.7-10.2 mg/dL Protein, Total 6.4 6.0-8.5 g/dL Albumin 4.2 3.9-4.9 g/dL Globulin, Total 2.2 1.5-4.5 g/dL Bilirubin, Total 0.3 0.0-1.2 mg/dL Alkaline Phosphatase 102 44-121 IU/L AST (SGOT) 25 0-40 IU/L ALT (SGPT) 29 0-32 IU/L Vitamin B12 and Folate Reviewed date:04/20/2025 09:07:41 AM Interpretation: Performing Lab:[facility] [place], [address] [facility] Phone - [phone], Director - [facility] Notes/Report: Vitamin B12 795 234-6573 pg/mL Folate (Folic Acid), Serum 14.2 >3.0 ng/mL A serum folate concentration of less than 3.1 ng/mL is considered to represent clinical deficiency. Hemoglobin A1c* Reviewed date:04/20/2025 09:07:41 AM Interpretation: Performing Lab:[facility] [place], [address] [facility], Phone - [phone], Director - [facility] Notes/Report: Hemoglobin A1c 5.4 4.8-5.6 % . Prediabetes: 5.7 - 6.4 Diabetes: >6.4 Glycemic control for adults with diabetes: <7.0 Reason For Referral Reason under breasts and in femoral creases, recurrent, possible hidradenitis Diagnosis 1 Boils (L02.92) Referral Organization [facility] Referring Provider First Name Kimani Referring Provider Last Name Lizzette Referring Provider Speciality Internal M edicine Referred Provider Specialty Dermatology Referral Priority Routine Medications Medication SIG (Take, Route, Frequency, Duration) Notes Start Date End Date Status Rexulti 2 MG 1 tablet Orally Once a day; Duration: 90 days Active Atorvastatin Calcium 20 mg TAKE 1 TABLET BY MOUTH DAILY; Duration: 28 days Active Eszopiclone 2 MG 1 tablet immediately before bedtime Orally Once a day; Duration: 30 days Approval until 08/06/26. 08/06/2025 Active Phentermine HCl 37.5 MG 1 capsule Orally Once a day; Duration: 30 days 08/31/2025 Active Vitamin D3 50 MCG (2000 UT) TAKE 1 TABLET BY MOUTH DAILY; Duration: 28 days Active Albuterol Sulfate HFA 108 (90 Base) MCG/ACT INHALE 2 PUFFS EVERY FOUR HOURS; Duration: 16 Active Levothyroxine Sodium 75 MCG TAKE 1 TABLET BY MOUTH EVERY MORNING ON AN EMPTY STOMACH; Duration: 28 days Active ZyPREXA Zydis 5 MG 1 tablet on the tongue and allow to dissolve Orally Once a day IF NEEDED; Duration: 90 days Active Spiriva Respimat 2.5 MCG/ACT 2 puffs Inhalation Once a day Active PARoxetine HCl 40 MG 1 tablet in the morning Orally Once a day; Duration: 90 days Active Dulera 100-5 MCG/ACT as directed Inhalation Active Benztropine Mesylate 1 MG 1 tablet Orally Once a day; Duration: 90 days Active Pantoprazole Sodium 40 MG 1 tablet 1/2 to 1 hour before morning meal Orally Once a day; Duration: 30 days FOR MEJIAS'S ESOPHAGUS CONFIRMED BY BIOPSY 04/18/2025 Active OLANZapine 5 mg DISSOLVE 1 TABLET BY MOUTH DAILY IF NEEDED; Duration: 30 Active lamoTRIgine 100 MG 2.5 tablets Orally Once a day; Duration: 90 days Active Mirtazapine 30 MG 1 tablet at bedtime Orally Once a day; Duration: 90 days Active Prazosin HCl 2 MG 2 capsules at bedtime Orally Once a day; Duration: 90 days Active Immunizations Vaccine Route Administration Date Status Comme nts COVID-19 Moderna 1ST IM Intramuscular 02/20/2021 Administered COVID-19 Moderna 2nd IM Intramuscular 03/20/2021 Administered EUA date 10/2020. Screening reviewed and consent signed. Patient tolerated well. FLU VAC NO PRSV 4VAL 6 mo+ IM Intramuscular 09/09/2021 Administered Pt tolerated well. Voiced no questions or concerns at present time. FLU VAC NO PRSV 4VAL 6 mo+ Unknown 10/14/2022 Administered FLU VAC NO PRSV 4VAL 6 mo+ IM Intramuscular 08/22/2024 Administered Sydnie Carrillo 08/22/2024 01:15 PM CDT >Given in RMD, tolerated well. Pneumococcal 20-valent Unknown 10/14/2022 Administered Social History Tobacco Use: Social History Observation [...] your current housing situation? I have h jarrettg Are you worried about losing your housing? No What is the highest level of school that you have finished? Less than a high school degree What is your current work situation? [employer] unemployed but not seeking work (ex. 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 Stress is when someone feels tense, nervous, anxious, or can\t sleep at night because their mind is troubled Somewhat In the past year have you sp ent more than 2 nights in a row in a longterm, senior living, custodial center, or juvenile correctional facility? 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 Problems Problem Type SNOMED Code ICD Code Onset Dates Problem Status W/U Status Risk Notes Problem Tobacco user (731102778) Nicotine dependence, unspecified, uncomplicated (F17.200) Active confirmed Problem Chronic pain (03683602) Other chronic pain (G89.29) Active confirmed Problem COPD - Chronic obstructive pulmonary disease (30079049) COPD (chronic obstructive pulmonary disease) (J44.9) Active confirmed Problem Bipolar 1 disorder (334785157) Bipolar 1 disorder (F31.9) 022 Active confirmed Problem Akathisia (634410576) Akathisia (G25.71) Active confirmed Problem Sleep disorder (72011848) Sleep disorder (G47.9) Active confirmed Problem Neuropathy (359841099) Neuropathy (G62.9) Active confirmed Problem Overweight (037184484) Over weight (E66.3) Active confirmed Problem Dementia (44347049) Dementia (F03.90) Active co nfirmed Problem Obesity (597607724) Obesity (BMI 30-39.9) (E66.9) Active confirmed Problem Posttraumatic stress disorder (17298153) Post traumatic stress disorder (PTSD) (F43.10) Active confirmed Problem Drug monitoring done (000492811) Therapeutic drug monitoring (Z51.81) Active confirmed Problem Hypothyroidism (15011064) Hypothyroidism, unspecified type (E03.9) Active confirmed Problem Mejias's esophagus (913889743) Mejias's esophagus determined by endoscopy (K22.70) Active confirmed Problem Uncomplicated moderate persistent asthma (785483278) Moderate persistent asthma without complication (J45.40) Active confirmed Problem Gastroesophageal reflux disease without esophagitis (707480105) Gastroesophageal reflux disease without esophagitis (K21.9) Active confirmed Problem Generalized anxiety disorder (78975718) Anxiety, generalized (F41.1) Active confirmed Problem Urinary tract infectious disease (02309616) UTI symptoms (R39.9) Active confirmed Problem Restless legs (96715462) Restless leg (G25.81) Active confirmed Problem Amnesia (01926462) Memory change s (R41.3) Active confirmed Vital Signs Heart Rate 105 /min 08/31/2025 Temperature 97.6 degrees Fahrenheit 07/19/2025 Respiratory Rate 18 /min 08/31/2025 Oximetry 96 % 08/31/2025 Blood pressure diastolic 70 mm Hg 08/31/2025 Height 61 in in 08/31/2025 Blood pressure systolic 122 mm Hg 08/31/2025 Weight 210.0 lb lbs 08/31/2025 BMI 39.67 kg/m2 08/31/2025 Encounters Encounter Location Date Provider Diagnosis [address] [place] [address] 08/31/2025 Kimani Crocker Obesity (BMI 30-39.9) E66.[address] [place] [address] 09/27/2024 Allison Mcbride Bipolar 1 disorder F31.9 ; Anxiety, generalized F41.1 ; Sleep disorder G47.9 ; Dementia F03.90 ; Post traumatic stress disorder (PTSD) F43.10 and Akathisia G25.71 [facility] [address] [place] [address] [place] [address] 10/31/2024 Allison Mcbride Bipolar 1 disorder F31.9 ; Anxiety, generalized F41.1 ; Sleep disorder G47.9 ; Dementia F03.90 ; Post traumatic stress disorder (PTSD) F43.10 and Akathisia G25.[address] [address] 01/25/2025 Allison Mcbride Bipolar 1 disorder F31.9 ; Anxiety, generalized F41.1 ; Sleep disorder G47.9 ; Dementia F03.90 ; Post traumatic stress disorder (PTSD) F43.10 and Akathisia G25.[address] [place] [address] 03/28/2025 Allison Mcbride [address] [place] [address] 04/12/2025 Allison Mcbride Bipolar 1 disorder F31.9 ; Anxiety, generalized F41.1 ; Sleep disorder G47.9 ; Dementia F03.90 ; Post traumatic stress disorder (PTSD) F43.10 and Akathisia G25.[address] [place] [address] 04/18/2025 Kimani Crocker Mejias's esophagus determined by endoscopy K22.70 ; Restless leg G25.81 ; Hypothyroidism, unspecified type E03.9 ; Bipolar 1 disorder F31.9 ; COPD (chronic obstructive pulmonary disease) J44.9 ; Moderate persistent asthma without complication J45.40 ; Orthostatic hypotension I95.1 ; Neuropathy G62.9 and Dementia F03.[address] [address] 05/22/2025 Kimani Crocker Obesity (BMI 30-39.9) E66.[address] [address] 06/18/2025 Allison Reed Over weight E66.3 ; Bipolar 1 disorder F31.9 ; Anxiety, generalized F41.1 ; Sleep disorder G47.9 ; Dementia F03.90 ; Post traumatic stress disorder (PTSD) F43.10 and Akathisia G25.[address] [address] 07/19/2025 Kimani Crocker Obesity (BMI 30-39.9) E66.[address] [address] 08/06/2025 Allison Reed Over weight E66.3 ; Bipolar 1 disorder F31.9 ; Anxiety, generalized F41.1 ; Sleep disorder G47.9 ; Dementia F03.90 ; Post traumatic stress disorder (PTSD) F43.10 and Akathisia G25.[address] [address] 09/18/2024 Ayad Sutherland [address] [address] 09/21/2024 Ayad Sutherland Anxiety, generalized F41.1 ; Post traumatic stress disorder (PTSD) F43.10 ; Bipolar 1 disorder F31.9 ; Sleep disorder G47.9 and Akathisia G25.[address] [address] 09/21/2024 Ayad Sutherland [address] [address] 10/05/2024 Jackie Lee [address] [address] 01/23/2025 Allison Mcbride Sleep disorder G47.9 ; Anxiety, generalized F41.1 and Dementia F03.[address] [address] 04/17/2025 Allison Mcbride [address] [address] 04/25/[address] [address] 06/05/2025 Kimani Crocker Dental infection K04.[address] [address] 06/14/2025 [facility] [address], [place] [address] 06/18/[address] [address] 06/28/2025 Muriel Nieto Sleep disorder G47.[address] [address] 07/04/2025 Allison Mcbride Sleep disorder G47.[address] [address] 07/17/2025 Allison Mcbride Sleep disorder G47.[address] [address] 08/02/2025 Kimanilesvia Crocker Boils L02.92 [facility] [address] [place] [address] 08/06/2025 [facility] [address], [place] [address] 08/13/2025 Allison Reed [address] [place] [address] 08/15/2025 Kimani Crocker Obesity (BMI 30-39.9) E66.9 Assessments Encounter Date Diagnosis (ICD Code) Assessment Notes Treatment Notes Treatment Clinical Notes Section Notes 05/22/2025 Obesity (BMI 30-39.9) (ICD-10 - E66.9) 06/05/2025 Dental infection (ICD-10 - K04.7) 07/19/2025 Obesity (BMI 30-39.9) (ICD-10 - E66.9) RECOMMENDED CHAIR YOGA A STARTER PROGRAM. 08/02/2025 Boils (ICD-10 - L02.92) 06/18/2025 Over weight (ICD-10 - E66.3) 06/28/2025 Sleep disorder (ICD-10 - G47.9) 07/04/2025 Sleep disorder (ICD-10 - G47.9) 07/17/2025 Sleep disorder (ICD-10 - G47.9) 08/06/2025 Over weight (ICD-10 - E66.3) 08/15/2025 Obesity (BMI 30-39.9) (ICD-10 - E66.9) 08/31/2025 Obesity (BMI 30-39.9) (ICD-10 - E66.9) 04/18/2025 Mejias's esophagus determined by endoscopy (ICD-10 - K22.70) 04/18/2025 Restless leg (ICD-10 - G25.81) 09/27/2024 Anxiety, generalized (ICD-10 - F41.1) Decreasing mirtazapine for sedation to aid with sleep. May look to increase Paxil for anxiety if needed. 10/31/2024 Bipolar 1 disorder (ICD-10 - F31.9) Less motor aggitation noted with Rexulti, continue. Internal and physical restlessness noted with Vraylar 01/23/2025 Sleep disorder (ICD-10 - G47.9) 01/25/2025 Bipolar 1 disorder (ICD-10 - F31.9) Less motor aggitation noted with Rexulti, continue. Likely TD with restlessness noted, worsened by ropinirole (further linking likelihood of TD) Plan for client to come in for AIMS and likely start Austedo- discussed plan with client and she v/u. Internal and physical restlessness noted with Vraylar 04/12/2025 Bipolar 1 disorder (ICD-10 - F31.9) Less motor aggitation noted with Rexulti, continue. Internal and physical restlessness noted with Vraylar Wosened be ropinerole 09/21/2024 Anxiety, generalized (ICD-10 - F41.1) 09/27/2024 Bipolar 1 disorder (ICD-10 - F31.9) Less motor aggitation noted with Rexulti, continue. Internal and physical restlessness noted with Vraylar 09/21/2024 Post traumatic stress disorder (PTSD) (ICD-10 - F43.10) 10/31/2024 Anxiety, generalized (ICD-10 - F41.1) Increase Paxil for anxiety and depression continue mirtazapine at 30mg- was not sleeping well at 45mg 01/23/2025 Anxiety, generalized (ICD-10 - F41.1) 09/27/2024 Sleep disorder (ICD-10 - G47.9) Pt reports that she has been falling asleep well since starting the Ramelteon. Pt denies side effects to meds. Pt has tried Ambien, Lunesta, Melatonin and Trazodone in the past with no improvement. 04/18/2025 Hypothyroidism, unspecified type (ICD-10 - E03.9) 06/18/2025 Bipolar 1 disorder (ICD-10 - F31.9) Less motor aggitation noted with Rexulti, continue. Internal and physical restlessness noted with Vraylar Wosened be ropinerole 04/12/2025 Anxiety, generalized (ICD-10 - F41.1) Continue Paxil for anxiety and depression continue mirtazapine at 30mg- was not sleeping well at 45mg 01/25/2025 Anxiety, generalized (ICD-10 - F41.1) Continue Paxil for anxiety and depression continue mirtazapine at 30mg- was not sleeping well at 45mg 08/06/2025 Bipolar 1 disorder (ICD-10 - F31.9) Less motor aggitation noted with Rexulti, continue. Internal and physical restlessness noted with Vraylar Wosened be ropinerole 06/18/2025 Anxiety, generalized (ICD-10 - F41.1) Continue Paxil for anxiety and depression continue mirtazapine at 30mg- was not sleeping well at 45mg 08/06/2025 Anxiety, generalized (ICD-10 - F41.1) Continue Paxil for anxiety and depression continue mirtazapine at 30mg- was not sleeping well at 45mg 04/18/2025 Bipolar 1 disorder (ICD-10 - F31.9) 04/12/2025 Sleep disorder (ICD-10 - G47.9) Pt reports that she had been falling asleep well since starting the Ramelteon. Pt denies side effects to meds. Pt has tried Ambien, Lunesta, Melatonin and Trazodone in the past with no improvement. Reports lessened sleep lately- increase to 2 tabs. 09/27/2024 Dementia (ICD-10 - F03.90) Continue for aggitation and bipolar disorder. Take as prescribed. Reviewed purpose (irritability, mood stability), benefits, and risks - low blood pressure, metabolic syndrome with high cholesterol or high blood sugars, change in cardiac conduction, nausea, vomiting, temporary or permanent movement disorders, and akathisia. Client has tried Seroquel and Vraylar in the past, SGAs. 01/23/2025 Dementia (ICD-10 - F03.90) 10/31/2024 Sleep disorder (ICD-10 - G47.9) Pt reports that she has been falling asleep well since starting the Ramelteon. Pt denies side effects to meds. Pt has tried Ambien, Lunesta, Melatonin and Trazodone in the past with no improvement. 01/25/2025 Sleep disorder (ICD-10 - G47.9) Pt reports that she has been falling asleep well since starting the Ramelteon. Pt denies side effects to meds. Pt has tried Ambien, Lunesta, Melatonin and Trazodone in the past with no improvement. 09/21/2024 Bipolar 1 disorder (ICD-10 - F31.9) 09/21/2024 Sleep disorder (ICD-10 - G47.9) 01/25/2025 Dementia (ICD-10 - F03.90) Continue for aggitation and bipolar disorder. Take as prescribed. Reviewed purpose (irritability, mood stability), benefits, and risks - low blood pressure, metabolic syndrome with high cholesterol or high blood sugars, change in cardiac conduction, nausea, vomiting, temporary or permanent movement disorders, and akathisia. Client has tried Seroquel and Vraylar in the past, SGAs. 10/31/2024 Dementia (ICD-10 - F03.90) Continue for aggitation and bipolar disorder. Take as prescribed. Reviewed purpose (irritability, mood stability), benefits, and risks - low blood pressure, metabolic syndrome with high cholesterol or high blood sugars, change in cardiac conduction, nausea, vomiting, temporary or permanent movement disorders, and akathisia. Client has tried Seroquel and Vraylar in the past, SGAs. 09/27/2024 Post traumatic stress disorder (PTSD) (ICD-10 - F43.10) Pt reports that her night terrors are under control at this time. 04/12/2025 Dementia (ICD-10 - F03.90) Continue for aggitation and bipolar disorder. Take as prescribed. Reviewed purpose (irritability, mood stability), benefits, and risks - low blood pressure, metabolic syndrome with high cholesterol or high blood sugars, change in cardiac conduction, nausea, vomiting, temporary or permanent movement disorders, and akathisia. Client has tried Seroquel and Vraylar in the past, SGAs. 04/18/2025 COPD (chronic obstructive pulmonary disease) (ICD-10 - J44.9) 08/06/2025 Sleep disorder (ICD-10 - G47.9) Increase dose as client reports this works well but not lasting long, monitor for any SE. PDMP checked without concerns. Ramelteon with some improvement for a few months, then stopped working Pt has tried Melatonin and Trazodone in the past with no improvement. Ambien with improvement in the past, not recommended at this time with known links to memory concerns and client already dx with dementia 06/18/2025 Sleep disorder (ICD-10 - G47.9) Pt reports that she had been falling asleep well since starting the Ramelteon in past, not sleeping anymore, start Lunesta. Pt denies side effects to meds. Pt has tried Melatonin and Trazodone in the past with no improvement. Ambien with improvement in the past, not recommended at this time with known links to memory concerns and client already dx with dementia, start Lunesta. 06/18/2025 Dementia (ICD-10 - F03.90) Continue for aggitation and bipolar disorder. Take as prescribed. Reviewed purpose (irritability, mood stability), benefits, and risks - low blood pressure, metabolic syndrome with high cholesterol or high blood sugars, change in cardiac conduction, nausea, vomiting, temporary or permanent movement disorders, and akathisia. Client has tried Seroquel and Vraylar in the past, SGAs. 08/06/2025 Dementia (ICD-10 - F03.90) Continue for aggitation and bipolar disorder. Take as prescribed. Reviewed purpose (irritability, mood stability), benefits, and risks - low blood pressure, metabolic syndrome with high cholesterol or high blood sugars, change in cardiac conduction, nausea, vomiting, temporary or permanent movement disorders, and akathisia. Client has tried Seroquel and Vraylar in the past, SGAs. 04/12/2025 Post traumatic stress disorder (PTSD) (ICD-10 - F43.10) Pt reports that her night terrors are under control at this time. 04/18/2025 Moderate persistent asthma without complication (ICD-10 - J45.40) 10/31/2024 Post traumatic stress disorder (PTSD) (ICD-10 - F43.10) Pt reports that her night terrors are under control at this time. 01/25/2025 Post traumatic stress disorder (PTSD) (ICD-10 - F43.10) Pt reports that her night terrors are under control at this time. 09/27/2024 Akathisia (ICD-10 - G25.71) Pt reports restlessness and pacing at times; symptoms have appeared to be akathisia. Propranolol was not used as pt takes Digoxin daily May look to d/c benztropine if appropriate with change to Rexulti. 09/21/2024 Akathisia (ICD-10 - G25.71) 04/12/2025 Akathisia (ICD-10 - G25.71) Pt reports restlessness and pacing at times; symptoms shown as akathisia in the past, AIMS noted, increase benztropine for restlessness- monitor for any worsening in movements and stop this medication if that is noted. Discussed risk of TD with SGAs and that movements can become permanent. Client v/u. Propranolol was not used as pt takes Digoxin daily 01/25/2025 Akathisia (ICD-10 - G25.71) Pt reports restlessness and pacing at times; symptoms shown as akathisia in the past, likely TD noted from discussions with client- she is to f/u with an AIMS test with RN at [facility] and have following appt with QUALITY REVIEW SPECIALIST in-office for further assessment. Propranolol was not used as pt takes Digoxin daily 10/31/2024 Akathisia (ICD-10 - G25.71) Pt reports restlessness and pacing at times; symptoms have appeared to be akathisia. Propranolol was not used as pt takes Digoxin daily May look to d/c benztropine if appropriate with change to Rexulti. 04/18/2025 Orthostatic hypotension (ICD-10 - I95.1) 08/06/2025 Post traumatic stress disorder (PTSD) (ICD-10 - F43.10) Pt reports that her night terrors are under control at this time. 06/18/2025 Post traumatic stress disorder (PTSD) (ICD-10 - F43.10) Pt reports that her night terrors are under control at this time. 08/06/2025 Akathisia (ICD-10 - G25.71) Discussed risk of TD with SGAs and that movements can become permanent. Client v/u. Propranolol was not used as pt takes Digoxin daily 04/18/2025 Neuropathy (ICD-10 - G62.9) 06/18/2025 Akathisia (ICD-10 - G25.71) Discussed risk of TD with SGAs and that movements can become permanent. Client v/u. Propranolol was not used as pt takes Digoxin daily 04/18/2025 Dementia (ICD-10 - F03.90) 09/27/2024 Other Reasons, potential benefits, potential risks, interactions and side effects of all medications were discussed. The Patient/Guardian asked appropriate questions, appeared to understand the answers, and decided to accept the treatment and continue being followed. Alternatives and expected course without treatment were reviewed. The Patient/Guardian is aware of the need to contact the office or return for an earlier appointment if any problems or concerns arise. May also contact the 24-hour crisis hotline ([facility]), refer to the closest emergency room or call 911 if new symptoms arise of existing symptoms worsen. The Patient/Guardian is aware that this would apply to symptoms like: suicidal ideation, homicidal ideation, high risk behaviors, manic symptoms, psychotic symptoms, physical symptoms, or any other symptoms that may be dangerous to self or others. Greater than 50% of time spent on coordination and counseling where psychopharmacology as well as psychotherapeutic interventions were discussed along with review of treatments in the past. Education provided concerning need for adequate hydration. Patient/Guardian verbalized understanding of education, treatment plan and follow up. This session was completed telephonically with client/parental/guard nichole consent: Unable to determine movement status, assess appearance, affect, AIMS, or vital signs. 10/31/2024 Other Reasons, potential benefits, potential risks, interactions and side effects of all medications were discussed. The Patient/Guardian asked appropriate questions, appeared to understand the answers, and decided to accept the treatment and continue being followed. Alternatives and expected course without treatment were reviewed. The Patient/Guardian is aware of the need to contact the office or return for an earlier appointment if any problems or concerns arise. May also contact the 24-hour crisis hotline ([facility]), refer to the closest emergency room or call 911 if new symptoms arise of existing symptoms worsen. The Patient/Guardian is aware that this would apply to symptoms like: suicidal ideation, homicidal ideation, high risk behaviors, manic symptoms, psychotic symptoms, physical symptoms, or any other symptoms that may be dangerous to self or others. Greater than 50% of time spent on coordination and counseling where psychopharmacology as well as psychotherapeutic interventions were discussed along with review of treatments in the past. Education provided concerning need for adequate hydration. Patient/Guardian verbalized understanding of education, treatment plan and follow up. This session was completed telephonically with client/parental/guard nichole consent: Unable to determine movement status, assess appearance, affect, AIMS, or vital signs. 03/28/2025 Other Emy MCKEE, [employer] 03/28/2025 05:03:47 PM CDT >AIMS completed and scanned into pt docs. 04/12/2025 Other Reasons, potential benefits, potential risks, interactions and side effects of all medications were discussed. The Patient/Guardian asked appropriate questions, appeared to understand the answers, and decided to accept the treatment and continue being followed. Alternatives and expected course without treatment were reviewed. The Patient/Guardian is aware of the need to contact the office or return for an earlier appointment if any problems or concerns arise. May also contact the 24-hour crisis hotline ([facility]), refer to the closest emergency room or call 911 if new symptoms arise of existing symptoms worsen. The Patient/Guardian is aware that this would apply to symptoms like: suicidal ideation, homicidal ideation, high risk behaviors, manic symptoms, psychotic symptoms, physical symptoms, or any other symptoms that may be dangerous to self or others. Greater than 50% of time spent on coordination and counseling where psychopharmacology as well as psychotherapeutic interventions were discussed along with review of treatments in the past. Education provided concerning need for adequate hydration. Patient/Guardian verbalized understanding of education, treatment plan and follow up. This session was completed telephonically with client/parental/guard nichole consent: Unable to determine movement status, assess appearance, affect, AIMS, or vital signs. 06/18/2025 Other Reasons, potential benefits, potential risks, interactions and side effects of all medications were discussed. The Patient/Guardian asked appropriate questions, appeared to understand the answers, and decided to accept the treatment and continue being followed. Alternatives and expected course without treatment were reviewed. The Patient/Guardian is aware of the need to contact the office or return for an earlier appointment if any problems or concerns arise. May also contact the 24-hour crisis hotline ([facility]), refer to the closest emergency room or call 911 if new symptoms arise of existing symptoms worsen. The Patient/Guardian is aware that this would apply to symptoms like: suicidal ideation, homicidal ideation, high risk behaviors, manic symptoms, psychotic symptoms, physical symptoms, or any other symptoms that may be dangerous to self or others. Greater than 50% of time spent on coordination and counseling where psychopharmacology as well as psychotherapeutic interventions were discussed along with review of treatments in the past. Education provided concerning need for adequate hydration. Patient/Guardian verbalized understanding of education, treatment plan and follow up. 08/06/2025 Other Reasons, potential benefits, potential risks, interactions and side effects of all medications were discussed. The Patient/Guardian asked appropriate questions, appeared to understand the answers, and decided to accept the treatment and continue being followed. Alternatives and expected course without treatment were reviewed. The Patient/Guardian is aware of the need to contact the office or return for an earlier appointment if any problems or concerns arise. May also contact the 24-hour crisis hotline ([facility]), refer to the closest emergency room or call 911 if new symptoms arise of existing symptoms worsen. The Patient/Guardian is aware that this would apply to symptoms like: suicidal ideation, homicidal ideation, high risk behaviors, manic symptoms, psychotic symptoms, physical symptoms, or any other symptoms that may be dangerous to self or others. Greater than 50% of time spent on coordination and counseling where psychopharmacology as well as psychotherapeutic interventions were discussed along with review of treatments in the past. Education provided concerning need for adequate hydration. Patient/Guardian verbalized understanding of education, treatment plan and follow up. This session was completed telephonically with client/parental/guard nichole consent: Unable to determine movement status, assess appearance, affect, AIMS, or vital signs. 06/05/2025 Other Learning About the Safe Use of Antibiotics material was discussed. Pt was educated on use of antibiotic medication including dosing, side effects, adverse effects and anticipated response. Pt was also educated on importance of completing full course of treatment as ordered. Patient voiced understanding of all. Plan Of Treatment Next Appt Details Provider Name:Allison garland, 09/12/2025 09:20:00 AM, [address] [facility] , [place], [address], Insurance Providers Payer Name Payer Address Payer Phone Subscriber Number Group Number Insured Name Patient Relationship to Insured Coverage Start Date Coverage End Date [facility] Attn Claims Department [address] [place] [id number] [phone] [id number] Ganga Wyatt Self - patient is the insured [address] [facility] Attn Claims Department [address] [place] [address] [phone] [id number] Ganga Wyatt Self - patient is the insured 1 [facility] Attn Claims Department [address] [place] [address] [phone] [id number] RaquelBryon gonzalesroberto Self - patient is the insured 1 [facility] Attn Claims Department [address] [place] [address] [phone] [id number] Ganga Wyatt Self - patient is the insured 1 Medical (General) History Medical History History ICD Code bipolar ptsd copd multiple personality disorder fybromyalgia arthritis asthma spinal stinosis degenerative disk herniated disk Surgical History Surgery Date(Month/Year) Tubes tied 1997 heart ablasion 2002 heart ablasion 2006 cardiac cath 2016 cardiac cath 2021 cholecystectomy 03/2023 tumor removed R thumb Hospitalization History Reason Date(Month/Year) [facility] 04/2023 abscess to face 11/2020 vaginal 1997 vaginal 1995 2 births 1994
--- OUTSIDE RECORDS SUMMARY | 2025-09-02 12:16 | XMS_ITS | Clinical Summary ---
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 Sculptor Name Role Phone Mj Leigh MD Unavailable [phone] José Miguel Blake DMD Unavailable Kimani Crocker MD Primary Care Provider [phone] Allergies Active Allergy Reactions Criticality Noted Date Comments Alprazolam Mental status changes Low psychosis Benzodiazepines Mental status changes Low 2 Mental psychosis Tissue Adhesive Rash,Redness Medium 03/26/2023 Steri strip Medications levothyroxine (SYNTHROID) 75 mcg tabletIndications: hypothyroidism Take 1 tablet (75 mcg total) by mouth mill oiler before breakfast Active digoxin (LANOXIN) 125 mcg (0.125 mg) tabletIndications: Paroxysmal Supraventricular Tachycardia Take 1 tablet (125 mcg total) by mouth mill oiler before breakfast Active atorvastatin (LIPITOR) 20 mg tabletIndications: hyperlipidemia Take 1 tablet (20 mg total) by mouth daily Active lamoTRIgine (LaMICtal) 200 mg tabletIndications: Bipolar Disorder in Remission Take 1 tablet (200 mg total) by mouth mill oiler before breakfast 022 Active prazosin (MINIPRESS) 2 mg capsuleIndications :Chronic PTSD with Trauma Nightmares,Post Traumatic Stress Disorder Take 1 capsule (2 mg total) by mouth nightly 023 Active OLANZapine (ZyPREXA ZYDIS) 5 mg disintegrating tabletIndications: Bipolar Disorder,Depressio n Treatment Adjunct,Schizophre arian Take 1 tablet (5 mg total) by mouth nightly Active sertraline (ZOLOFT) 100 mg tablet daily Active famotidine (PEPCID) 40 mg tablet Active pyridoxine (VITAMIN B6) 25 mg tabletIndications: Vitamin B6 deficiency Take 0.5 tablets (12.5 mg total) by mouth daily 15 tablet Active donepeziL (ARICEPT) 10 mg tabletIndications: Memory changes TAKE 1 TABLET BY MOUTH EVERY NIGHT 28 tablet Active mometasone-formote rol (DULERA 100) 100-5 mcg/actuation inhaler Inhale 2 puffs 2 (two) times a day Rinse mouth with water after use. Do not swallow. 1 each 025 2025 Active tiotropium bromide (SPIRIVA RESPIMAT) 2.5 mcg/actuation inhaler Inhale 2 puffs daily 1 each 2025 Active albuterol HFA (PROVENTIL HFA,VENTOLIN HFA,PROAIR HFA) 90 mcg/actuation inhalerIndications :Centrilobular emphysema Inhale 2 puffs every 6 (six) hours as needed for wheezing 18 g 6 Active Symbicort 80-4.5 mcg/actuation inhalerIndications :Asthma, unspecified asthma severity, unspecified whether complicated, unspecified whether persistent INHALE 2 PUFFS TWICE A DAY RINSE MOUTH AFTER USE 10.2 g 025 Active eszopiclone (LUNESTA) 2 mg tablet Active mirtazapine (REMERON) 30 mg tablet Active albuterol HFA (PROVENTIL HFA,VENTOLIN HFA,PROAIR HFA) 90 mcg/actuation inhaler Inhale 2 puffs every 6 (six) hours as needed for wheezing 2024 Discontinued( Reorder) meclizine (ANTIVERT) 25 mg tabletIndications: Vertigo Take 1 tablet (25 mg total) by mouth 3 (three) times a day as needed for dizziness Collaborating physician James Marin MD 30 tablet 023 2024 Discontinued( Therapy completed) midodrine (PROAMATINE) 10 mg tabletIndications: Symptomatic Orthostatic Hypotension Take 1 tablet (10 mg total) by mouth 2 (two) times a day 2024 Discontinued( Therapy completed) methocarbamoL (ROBAXIN) 500 mg tablet Take 1 tablet (500 mg total) by mouth 2 (two) times a day 20 tablet 024 2024 Discontinued( Therapy completed) lubiprostone (AMITIZA) 8 mcg capsule Take 1 capsule (8 mcg total) by mouth 2 (two) times a day with meals Take with meals 60 capsule 11 2024 Discontinued( Therapy completed) lubiprostone (AMITIZA) 8 mcg capsule Take 1 capsule (8 mcg total) by mouth 2 (two) times a day with meals Take with meals 60 capsule 1 2024 Discontinued( Therapy completed) mirtazapine (REMERON) 45 mg tabletIndications: major depressive disorder Take 1 tablet (45 mg total) by mouth nightly 2024 Discontinued ranolazine ER (RANEXA) 500 mg 12 hr tablet 2024 Discontinued( Therapy completed) Vraylar 6 mg capsule 2024 Discontinued( Therapy completed) rOPINIRole (REQUIP) 4 mg tablet 2024 Discontinued( Therapy completed) senna-docusate (PERICOLACE) 8.6-50 mg Take 1 tablet by mouth 2 (two) times a day 60 tablet 024 2024 Discontinued( Therapy completed) PARoxetine (PAXIL) 30 mg tablet daily 2024 Discontinued( Therapy completed) benztropine (COGENTIN) 1 mg tablet 025 2024 Discontinued( Therapy completed) Rexulti 2 mg tablet daily 025 2024 Discontinued( Therapy completed) pantoprazole DR (PROTONIX) 40 mg EC tablet Take 1 tablet (40 mg total) by mouth daily 30 tablet 3 025 2024 Discontinued( Therapy completed) metFORMIN XR (GLUCOPHAGE XR) 500 mg 24 hr tablet daily 2024 Discontinued( Therapy completed) ramelteon (ROZEREM) 8 mg tablet 2024 Discontinued( Therapy completed) ibuprofen (ADVIL,MOTRIN) 800 mg tablet 2024 Discontinued( Therapy completed) acetaminophen-code ine (TYLENOL #2) 300-15 mg per tablet 2024 Discontinued( Therapy completed) mirabegron ER (MYRBETRIQ) 50 mg tablet extended release 24 hr Take 1 tablet (50 mg total) by mouth daily 2024 Discontinued( Therapy completed) amoxicillin 500 mg capsule 2024 Discontinued( Therapy completed) lamoTRIgine (LaMICtal) 100 mg tablet 2024 Discontinued( Alternate therapy) PARoxetine (PAXIL) 40 mg tablet 2024 Discontinued( Therapy completed) eszopiclone (LUNESTA) 1 mg tabletIndications: Insomnia Take 1 tablet (1 mg total) by mouth nightly Take immediately before bedtime 2024 Discontinued Symbicort 80-4.5 mcg/actuation inhalerIndications :Asthma, unspecified asthma severity, unspecified whether complicated, unspecified whether persistent Inhale 2 puffs 2 (two) times a day Rinse mouth with water after use to reduce aftertaste and incidence of candidiasis. Do not swallow. 10.2 g 11 2024 Discontinued Active Problems Problem Noted Date Diagnosed Date Chronic bilateral low back pain with left-sided sciatica 05/14/2025 Acute cough 04/13/2025 Assessment & Plan (04/13/2025 12:05 PM CDT): Worsening over the last 3 months I will check a chest x-ray today Centrilobular emphysema 04/13/2025 Assessment & Plan (06/19/2025 12:51 PM CDT): Maintenance therapy has been unaffordable. I have ordered Dulera 100 to be used at 2 puffs twice daily in addition to Spiriva Respimat 2.5 to be used at 2 puffs once daily. I have called her pharmacy and verified that this is a 0 dollar co-pay. She may continue albuterol 2 puffs every 4-6 hours as needed only, we have discussed all indications for use Need an alpha-1 buccal swab She has not have significant peripheral eosinophilia however she has had 4 exacerbations over the last year We have extensively discussed signs and symptoms that would require earlier evaluation or change to her plan of care Assessment & Plan (04/13/2025 12:11 PM CDT): Continue Breztri 2 puffs twice daily Albuterol as needed only, we have discussed indications for use Need alpha-1 buccal swab She is aware of reportable signs and symptoms Acute exacerbation of chroni c obstructive pulmonary disease (COPD) 04/13/2025 Assessment & Plan (04/13/2025 12:10 PM CDT): Start azithromycin. She has already had a course of prednisone She will also use her albuterol nebulizer We have discussed signs and symptoms that would require earlier evaluation or change to her plan of care Oral wesly 04/13/2025 Assessment & Plan (04/13/2025 12:12 PM CDT): Start nystatin swish and swallow 5 mL 4 times daily for 10 days I have reinforced rinse and spit after maintenance inhaled therapy use Vitamin B6 deficiency 05/19/2024 Constipation 03/14/2024 Giant cell tumor 02/27/2024 Mejias's esophagus without dysplasia 02/23/2024 Chronic obstructive pulmonary disease without ex acerbation 01/18/2024 Assessment & Plan (03/28/2024 9:44 PM CDT): Continue Breztri with AeroChamber twice daily, order to pharmacy sent today Albuterol as needed only, discussed indications for use Need alpha-1 buccal swab at next office visit Assessment & Plan (01/18/2024 11:59 AM CDT): Although she has been compliant with Trelegy Ellipta 100, she continues to have dyspnea, frequent cough and difficulty expectorating mucus Will trial Breztri twice daily 2 weeks of samples to patient Albuterol as needed discussed indications for use Continue flutter valve use Tobacco use 09/22/2023 Carotid artery disease 09/22/2023 Hiatal hernia 09/14/2023 Assessment & Plan (03/28/2024 9:46 PM CDT): Re-identified on recent EGD I do not think that it is large enough for repair at this time however, it may be contributing to her some of her dyspnea Continue to follow with GI Assessment & Plan (01/18/2024 11:57 AM CDT): May be a contributor to shortness of breath She should continue to follow with GI Abdominal pain, left upper quadrant 09/14/2023 Lightheadedness 04/16/2023 Urinary tract infection in female 04/16/2023 Early satiety 04/16/2023 Calculus of gallbladder with out cholecystitis without obstruction 03/18/2023 Assessment & Plan (04/08/2023 9:27 AM CDT): At current time there is no sign of active infection. She can continue to place some bacitracin to the incision and cover with a Band-Aid for the next few days. Continue diet as tolerates. No submerging incision for another week. No heavy lifting for another few weeks. Patient will call us back with any further questions or concerns. Assessment & Plan (03/18/2023 8:48 AM CDT): Patient with symptomatic cholelithiasis. Given her pulmonary history we ask her neuro urologist to make sure that they think she is optimize as possible to undergo surgery. We have discussed postoperative issues such as post cholecystectomy diarrhea. We have discussed postoperative restrictions. All questions have been answered. Abnormal finding on EKG 07/16/2022 Overview (07/16/2022): Added automatically from request for surgery [id number] Hypotension 12/15/2021 Dyspnea on exertion 02/22/2021 Assessment & Plan (01/18/2024 11:58 AM CDT): This is out of proportion to her pulmonary function testing Likely multiple contributing factors Cardiac catheterization was 07/2022 Check echocardiogram Sepsis 02/10/2021 SVT (supraventricular tachycardia) 02/10/2021 Dental infection 02/09/2021 Hyperlipidemia 02/07/2021 Cubital tunnel syndrome 11/15/2020 Overview (11/15/2020): Not likely contributing to her main symptoms at this point Tendonitis of elbow, right 11/15/2020 Overview (11/15/2020): Will treat with nsaids and eccentric exercises for now Other chest pain 10/12/2020 Edema 07/19/2020 Deep vein thrombosis (DVT) 06/25/2020 Gastroesophageal reflux disease 06/25/2020 Assessment & Plan (06/19/2025 12:52 PM CDT): She should continue pantoprazole 40 mg once daily at the same time She does have a previous diagnosis of of Mejias's esophagus and she should follow closely with GI Avoid trigger foods Elevate head of bed while sleeping We have discussed the relationship between uncontrolled GERD and chronic cough Assessment & Plan (04/13/2025 12:12 PM CDT): She is having severe symptoms and has been unable to get her PPI refilled I have sent a prescription for pantoprazole 40 mg once daily She does have a previous diagnosis of of Mejias's esophagus I have encouraged her to make a follow-up appointment with GI Avoid trigger foods Elevate head of bed while sleeping We have discussed the relationship between uncontrolled GERD and chronic cough Assessment & Plan (03/28/2024 9:44 PM CDT): Continue omeprazole and Pepcid daily Recent diagnosis of Mejias's esophagus Continue to follow with GI Avoid trigger foods Elevate head of bed while sleeping Assessment & Plan (01/18/2024 11:54 AM CDT): Symptoms and vomiting daily She is being worked up by GI Start Pepcid 40 mg p.o. daily Elevate head of bed while sleeping Avoid trigger foods Avoid eating 2-3 hours before bed Bipolar disorder 02/22/2019 Hidradenitis suppurativa 02/22/2019 History of substance abuse 02/22/2019 PTSD (post-traumatic stress disorder) 02/22/2019 Schizophrenia 02/22/2019 Mild intermittent asthma without complication Rash and other nonspecific skin eruption 017 Leukocytosis 04/12/2017 Thrombocytosis 04/12/2017 Insomnia due to medical condition 03/01/2017 Vitamin D deficiency 01/19/2017 Tobacco dependence syndrome 12/15/2016 Class 2 obesity due to exces s calories without serious comorbidity in adult 11/25/2016 Nicotine dependence, cigarettes, uncomplicated 0 11/25/2016 Assessment & Plan (06/19/2025 12:49 PM CDT): - Smoking cessation counseling and techniques reviewed at length - Avoid triggers and use distraction techniques - Participate in support groups - Information given regarding [place] Tobacco Quit line: 4-688-FTTQ-YES for free services 5 minutes spent discussing cessation She will likely benefit from NRT rather than abrupt cessation. I have encouraged lozenges. She has multiple other psychiatric medications, I am unsure that varencline is a good option for her. She will be due for annual lung cancer screening to begin in August after her 50th birthday. I have ordered this today. Assessment & Plan (03/28/2024 9:45 PM CDT): - Smoking cessation counseling and techniques reviewed at length - Avoid triggers and use distraction techniques - Participate in support groups - Information given regarding [place] Tobacco Quit line: 0-394-UAZY-YES for free services 4 minutes spent discussing cessation Assessment & Plan (01/18/2024 11:59 AM CDT): She continues to smoke 10-15 cigarettes daily - Smoking cessation counseling and techniques reviewed at length - Avoid triggers and use distraction techniques - Participate in support groups - Information given regarding [place] Tobacco Quit line: 1-063-WYRH-YES for free services 4 minutes spent discussing cessation She has nicotine patches and gum at home She does not qualify for lung cancer screening Essential hypertension 11/17/2016 Hypothyroidism 11/17/2016 Palpitations 11/17/2016 Fibromyalgia 10/28/2016 Left shoulder pain 10/28/2016 Memory loss 10/28/2016 Asthma 03/17/2014 Overview (02/05/2017): Asthma Tachycardia Resolved Problems Problem Noted Date Diagnosed Date Resolved Date Mucopurulent chronic bronchitis 01/18/2024 01/18/2024 Asthma-COPD overlap syndrome 02/22/2019 01/18/2024 Migraine with aura and witho ut status migrainosus, not intractable 12/08/2016 05/14/2025 Tremor 10/28/2016 05/14/2025 Encounters Date Type Department Care Team Description 08/30/2025 Results Follow-Up [facility] Pulmonary at [address] [place] [id number] Marline Thomas NP CT Lung Cancer Screening 08/27/2025 2:30 PM CDT - 08/27/2025 11:59 PM CDT Hospital Encounter [facility] [address] [place] [id number] Mid back pain; Lumbar radiculopathy; Cervical radiculopathy Discharge Disposition: Discharge to home or self care 08/27/2025 12:40 PM CDT - 08/27/2025 11:59 PM CDT Hospital Encounter [facility] [address] [place] [address] [facility] [address] [place] [address] Mukund Castellanos NP Sacroiliitis (Primary Dx); Lumbar radiculopathy; Cervical radiculopathy; Poor balance; Mid back pain Discharge Disposition: Discharge to home or self care 08/22/2025 9:03 AM CDT - 08/22/2025 11:59 PM CDT Hospital Encounter [facility] [address] [place] [address] Nicotine dependence, cigarettes, uncomplicated Discharge Disposition: Discharge to home or self care 08/20/2025 Telephone [facility] [address] [place] [address] Marline Weeks, RAFI 08/09/2025 Telephone [facility] at [address] [place] [phone] Sanchez, Angie, DIGITAL TRAFFIC COORDINATOR rf Albuterol 07/26/2025 Telephone [facility] [address] [place] [address] [address] [place] [address] Kings Monsivais NP 07/25/2025 Orders Only [facility] [address] [place] [address] [address] [place] [address] Kings Monsivais NP Chronic bilateral low back pain with left-sided sciatica (Primary Dx) 07/24/2025 Orders Only [facility] [address] [place] [address] [address] [place] [address] Kings Monsivais NP Chronic bilateral low back pain with left-sided sciatica (Primary Dx) 06/27/2025 Telephone [facility] [address] [place] [address] [address] [place] [address] Srinivas Pascual MD 06/26/2025 2:30 PM CDT Therapy [facility] [address] [place] [address] Lory Gonzalez, PT Chronic left-sided low back pain with left-sided sciatica (Primary Dx) 06/19/2025 10:00 AM CDT Office Visit [facility] at [address] [place] [address] Marline Thomas NP Centrilobular emphysema (HCC) (Primary Dx); Gastroesophageal reflux disease with esophagitis without hemorrhage; Nicotine dependence, cigarettes, uncomplicated from Last 3 Months Immunizations Immunization Administration Dates Next Due Influenza, Quadrivalent, Spl it, Preservative Free, Intramuscular 10/14/2020 Surgical History Surgery Date Site/Laterality Comments TUBAL LIGATION Bilateral tubal ligation OTHER SURGICAL HISTORY 11/01/1989 - 10/31/1990 Sebaceous cysts: removed, posterior trunk OTHER SURGICAL HISTORY 11/01/2016 - 10/31/2017 has had 2 heart ablasion surgeries-last in 2017 OTHER SURGICAL HISTORY cervical cancer removed->20yeras ago BREAST BIOPSY 11/01/1988 - 10/31/1989 Left BENIGN LASER ABLATION OF THE CERVIX and a uterine ablation-unsure of date APPENDECTOMY 11/01/1989 - 10/31/1990 CHOLECYSTECTOMY 03/26/2023 COLONOSCOPY 06/09/2024 UPPER GASTROINTESTINAL ENDOSCOPY 02/15/2024 FL FLUORO GUIDED LUMBAR PUNCTURE 05/03/2024 Right ESOPHAGOGASTRODUODENOSCOPY 05/22/2025 Medical History Medical History Date Comments Tension headache Headache, tensi on Chronic obstructive pulmonary disease COPD Cervical cancer ([facility]) 1997 SVT (supraventricular tachycardia) Migraines Sebaceous cyst Asthma Fibromyalgia Constipation Chest pain Hypothyroidism Hypotension Hypoglycemia Bipolar disorder Schizophrenia Deaf, left GERD (gastroesophageal reflux disease) Anxiety Arthritis Osteoporosis Cataract 1 and a half years ago Chronic bronchitis ([facility]) Depression Heart disease Mixed conductive and sensori neural hearing loss Mucopurulent chronic bronchitis ([facility]) 01/18/2024 Chronic obstructive pulmonar y disease without exacerbation ([facility]) 01/18/2024 Family History Medical History Relation Name Comments No Known Problems Father Memory loss Maternal Grandfather Grandpa Alzheimer's disease Maternal Grandmother Camille Early Maternal Grandmother Camille Colon cancer Maternal Great-Grandfather Arthritis Mother Mom BRCA 2 positive Mother Mom COPD Mother Mom Cancer Mother Mom Depression Mother Mom Drug abuse Mother Mom Memory loss Mother Mom Mental illness Mother Mom Rashes / Skin problems Mother Mom Vision loss Mother Mom BRCA 2 positive Mother's Sister 1 BRCA 2 positive Mother's Sister 2 Cancer Other 1 Family history of Cancer; Migraines Other 2 Family history of Migraine; Hearing loss Paternal Grandmother Camille Anesthesia problems Neg Hx Malig Hypertension Neg Hx Malig Hyperthermia Neg Hx Pseudochol deficiency Neg Hx Relation Name Status Comments Father Maternal Grandfather Grandpa Maternal Grandmother Camille Maternal Great-Grandfather Alive Mother Mom Mother's Sister 1 Alive Mother's Sister 2 Alive Other 1 Other 2 Paternal Grandmother Camille Social History Tobacco Use Types Packs/Day Years Used Date Smoking Tobacco: Every Day Cigarettes 0.5 34.8 Started: 09/08/1990; Last attempted to quit: 09/01/2022 Smokeless Tobacco: Never Tobacco Cessation:Ready to Q uit: Not Asked; Counseling Given: Not Answered Comments:Smoking History Packs/day: 1 Packs, Counseling given, contact pcp for [...] on file Legal Sex Female 3:03 AM 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 Gender Identity Not on file Sexual Orientation Straight 06/04/2023 12 :16 PM CDT Obstetrics History Para Term AB IAB SAB Ectopic Multiple Livin g Live Births 4 4 4 Date Outcome GA Total Labor Labor//3rd Weight Sex Type Anes PTL Daxa A1 A5 Name Clin Term Term Term Term Last Filed Vital Signs Vital Sign Reading Time Taken Comments Blood Pressure 148/73 08/27/2025 1:16 PM CDT Pulse 106 08/27/2025 1:16 PM CDT Temperature 36.5 C (97.7 F) 08/27/2025 1:16 PM CDT Respiratory Rate 20 08/27/2025 1:16 PM CDT Oxygen Saturation 90% 08/27/2025 1:16 PM CDT Inhaled Oxygen Concentration - - Weight 95.4 kg (210 lb 4.8 oz) 08/27/2025 1:16 P M CDT Height 156.2 cm (5' 1.5) 08/27/2025 1:16 PM CDT Body Mass Index 39.09 08/27/2025 1:16 PM CDT Plan of Treatment Health Maintenance Due Date Last Done Comments Cervical Cancer Screening 1975 Hepatitis C Screening 1975 DTaP/Tdap/Td Vaccine (1 - Tdap) 1986 Hepatitis B Screening 1993 Regular Well Visit/Exam 18-64 1993 Depression Screening 10/11/2021 10/11/2020 Breast Cancer Screening-Mammogram 07/07/2024 07/07/2023, 04/22/2022, 04/22/2022, Additional history exists Covid-19 Vaccine (3 - 2024-2 6 season) 2025 03/20/2021, 02/20/2021 Influenza Vaccine (#1) 2025 , 09/17/2023, 10/14/2022, Additional history exists Pneumococcal vaccine <65 (3 of 3 - PCV20 or PCV21) 2025 08/21/2016, 08/21/2016, 08/20/2016, Additional history exists Zoster Vaccine (1 of 2) 2025 Lung Cancer Screening 08/23/2026 08/22/2025 Colon Cancer Screening-Colonoscopy 06/09/20342023 Goals Goal Patient Goal Type Associated Problems Recent Progress Patient-Stated? Author CCM Chronic Pain Care Plan Chronic Care Management Blanca Fox, RN Note: Problem: Chronic Pain Goals: 1. Minimize further functional decline 2. Maximize quality of life 3. Control pain Strategies: - Activity/exercise program recommendation - Conservative stepwise pain medicine strategy with multi-disciplinary approach - Recommend healthy lifestyle strategies and compensatory methods as needed Medical Devices Implanted Type Area Tile Presser Device Identifier Shelf Expiration Date Model / Serial / Lot [employer] Hem-O-Taurus Ligate Nonabsorbable Cartridge Medium Large Latex Free [id number] - [id number] Implanted:Qty: 1 on 03/26/2023 by Mane Galaviz MD at [facility] N/A: Abdomen [employer] 01/28/2028 [id number] / / [id number] Description:6 clips used, mr i safe 1.5T/3T Procedures Procedure Name Priority Date/Time Associated Diagnosis Comments XR SPINE CERVICAL COMPLETE 4 OR 5 VW Schedule Routine, Read Routine (OP Routine) 08/27/2025 2:49 PM CDT Cervical radiculopathy XR SPINE LUMBAR COMPLETE 4 OR MORE VIEWS Schedule Routine, Read Routine (OP Routine) 08/27/2025 2:49 PM CDT Lumbar radiculopathy XR SPINE THORACIC 3 VIEWS Schedule Routine, Read Routine (OP Routine) 08/27/2025 2:49 PM CDT Mid back pain CT LUNG CANCER SCREENING Schedule Routine, Read Routine (OP Routine) 08/22/2025 9:25 AM CDT Nicotine dependence, cigarettes, uncomplicated COLONOSCOPY 06/09/2024 9:41 AM CDT SCREENING MAMMOGRAM BILATERAL W [facility] Schedule Routine, Read Routine (OP Routine) 07/07/2023 2:35 PM CDT Screening mammogram, encounter for from Last 3 Months or Most Recently Relevant to Health Maintenance Results * X-ray lumbar spine complete 4+ views (08/27/2025 2:49 PM CDT) Anatomical Region Laterality Modality Spine N/A Computed Radiogr aphy 08/27/2025 4:01 PM CDT Impressions 08/27/2025 4:01 PM CDT 1. Multilevel degenerative disc disease of the cervical spine, greatest and mild at C5-C7, with mild anterolisthesis of C4 on C5. 2. Multilevel degenerative disc disease of the thoracic and lumbar spine, greatest and moderate to severe L5-S1. Electronically signed by: Srinivas Kline MD Narrative 08/27/2025 4:01 PM CDT EXAMINATION: XR SPINE THORACIC 3 VIEWS, XR SPINE LUMBAR 4 OR MORE VIEWS, XR SPINE CERVICAL COMPLETE 4 OR 5 VW HISTORY: Chronic neck, mid back and low back pain FINDINGS: Cervical spine: Comparison is made with CT of the neck dated 02/09/2021. There is mild anterolisthesis of C4 on C5. Vertebral body heights are maintained. No acute displaced fracture. Multilevel degenerative disc disease of the cervical spine, greatest and mild at C5-C7. Multilevel facet and uncovertebral arthropathy causing up to mild to moderate right greater than left osseous neuroforaminal narrowing. The prevertebral soft tissues are normal. Thoracic spine: Comparison is made with CT of the abdomen pelvis dated 05/24/2024. The alignment of the thoracic spine is normal. Vertebral body heights are maintained. No acute displaced fracture. Mild multilevel degenerative disc disease of the thoracic spine. Lumbar spine: Comparison is made with CT of the abdomen pelvis dated 05/24/2024. The alignment of the lumbar spine is normal. Vertebral body heights are maintained. No acute displaced fracture. Multilevel degenerative disc disease of the lumbar spine, greatest and moderate to severe at L5-S1, with mild lower lumbar facet osteoarthritis at that level. Aortic atherosclerosis. Procedure Note Srinivas Kline MD - 08/27/2025 EXAMINATION: XR SPINE THORACIC 3 VIEWS, XR SPINE LUMBAR 4 OR MORE VIEWS, XR SPINE CERVICAL COMPLETE 4 OR 5 VW HISTORY: Chronic neck, mid back and low back pain FINDINGS: Cervical spine: Comparison is made with CT of the neck dated 02/09/2021. There is mild anterolisthesis of C4 on C5. Vertebral body heights are maintained. No acute displaced fracture. Multilevel degenerative disc disease of the cervical spine, greatest and mild at C5-C7. Multilevel facet and uncovertebral arthropathy causing up to mild to moderate right greater than left osseous neuroforaminal narrowing. The prevertebral soft tissues are normal. Thoracic spine: Comparison is made with CT of the abdomen pelvis dated 05/24/2024. The alignment of the thoracic spine is normal. Vertebral body heights are maintained. No acute displaced fracture. Mild multilevel degenerative disc disease of the thoracic spine. Lumbar spine: Comparison is made with CT of the abdomen pelvis dated 05/24/2024. The alignment of the lumbar spine is normal. Vertebral body heights are maintained. No acute displaced fracture. Multilevel degenerative disc disease of the lumbar spine, greatest and moderate to severe at L5-S1, with mild lower lumbar facet osteoarthritis at that level. Aortic atherosclerosis. IMPRESSION: 1. Multilevel degenerative disc disease of the cervical spine, greatest and mild at C5-C7, with mild anterolisthesis of C4 on C5. 2. Multilevel degenerative disc disease of the thoracic and lumbar spine, greatest and moderate to severe L5-S1. Electronically signed by: Srinivas Kline MD Mukund Castellanos NP IMG XR PROCEDURES Final Result * X-ray thoracic spine 3 views (08/27/2025 2:49 PM CDT) Anatomical Region Laterality Modality Spine N/A Computed Radiogr aphy 08/27/2025 4:01 PM CDT Impressions 08/27/2025 4:01 PM CDT 1. Multilevel degenerative disc disease of the cervical spine, greatest and mild at C5-C7, with mild anterolisthesis of C4 on C5. 2. Multilevel degenerative disc disease of the thoracic and lumbar spine, greatest and moderate to severe L5-S1. Electronically signed by: Srinivas Kline MD Narrative 08/27/2025 4:01 PM CDT EXAMINATION: XR SPINE THORACIC 3 VIEWS, XR SPINE LUMBAR 4 OR MORE VIEWS, XR SPINE CERVICAL COMPLETE 4 OR 5 VW HISTORY: Chronic neck, mid back and low back pain FINDINGS: Cervical spine: Comparison is made with CT of the neck dated 02/09/2021. There is mild anterolisthesis of C4 on C5. Vertebral body heights are maintained. No acute displaced fracture. Multilevel degenerative disc disease of the cervical spine, greatest and mild at C5-C7. Multilevel facet and uncovertebral arthropathy causing up to mild to moderate right greater than left osseous neuroforaminal narrowing. The prevertebral soft tissues are normal. Thoracic spine: Comparison is made with CT of the abdomen pelvis dated 05/24/2024. The alignment of the thoracic spine is normal. Vertebral body heights are maintained. No acute displaced fracture. Mild multilevel degenerative disc disease of the thoracic spine. Lumbar spine: Comparison is made with CT of the abdomen pelvis dated 05/24/2024. The alignment of the lumbar spine is normal. Vertebral body heights are maintained. No acute displaced fracture. Multilevel degenerative disc disease of the lumbar spine, greatest and moderate to severe at L5-S1, with mild lower lumbar facet osteoarthritis at that level. Aortic atherosclerosis. Procedure Note Srinivas Kline MD - 08/27/2025 EXAMINATION: XR SPINE THORACIC 3 VIEWS, XR SPINE LUMBAR 4 OR MORE VIEWS, XR SPINE CERVICAL COMPLETE 4 OR 5 VW HISTORY: Chronic neck, mid back and low back pain FINDINGS: Cervical spine: Comparison is made with CT of the neck dated 02/09/2021. There is mild anterolisthesis of C4 on C5. Vertebral body heights are maintained. No acute displaced fracture. Multilevel degenerative disc disease of the cervical spine, greatest and mild at C5-C7. Multilevel facet and uncovertebral arthropathy causing up to mild to moderate right greater than left osseous neuroforaminal narrowing. The prevertebral soft tissues are normal. Thoracic spine: Comparison is made with CT of the abdomen pelvis dated 05/24/2024. The alignment of the thoracic spine is normal. Vertebral body heights are maintained. No acute displaced fracture. Mild multilevel degenerative disc disease of the thoracic spine. Lumbar spine: Comparison is made with CT of the abdomen pelvis dated 05/24/2024. The alignment of the lumbar spine is normal. Vertebral body heights are maintained. No acute displaced fracture. Multilevel degenerative disc disease of the lumbar spine, greatest and moderate to severe at L5-S1, with mild lower lumbar facet osteoarthritis at that level. Aortic atherosclerosis. IMPRESSION: 1. Multilevel degenerative disc disease of the cervical spine, greatest and mild at C5-C7, with mild anterolisthesis of C4 on C5. 2. Multilevel degenerative disc disease of the thoracic and lumbar spine, greatest and moderate to severe L5-S1. Electronically signed by: Srinivas Kline MD Mukund Castellanos DEPUTY GENERAL COUNSEL IMG XR PROCEDURES Final Result * XR Spine Cervical Complete 4 or 5 Views (08/27/2025 2:49 PM CDT) Anatomical Region Laterality Modality Spine N/A Computed Radiogr aphy 08/27/2025 4:01 PM CDT Impressions 08/27/2025 4:01 PM CDT 1. Multilevel degenerative disc disease of the cervical spine, greatest and mild at C5-C7, with mild anterolisthesis of C4 on C5. 2. Multilevel degenerative disc disease of the thoracic and lumbar spine, greatest and moderate to severe L5-S1. Electronically signed by: Srinivas Kline MD Narrative 08/27/2025 4:01 PM CDT EXAMINATION: XR SPINE THORACIC 3 VIEWS, XR SPINE LUMBAR 4 OR MORE VIEWS, XR SPINE CERVICAL COMPLETE 4 OR 5 VW HISTORY: Chronic neck, mid back and low back pain FINDINGS: Cervical spine: Comparison is made with CT of the neck dated 02/09/2021. There is mild anterolisthesis of C4 on C5. Vertebral body heights are maintained. No acute displaced fracture. Multilevel degenerative disc disease of the cervical spine, greatest and mild at C5-C7. Multilevel facet and uncovertebral arthropathy causing up to mild to moderate right greater than left osseous neuroforaminal narrowing. The prevertebral soft tissues are normal. Thoracic spine: Comparison is made with CT of the abdomen pelvis dated 05/24/2024. The alignment of the thoracic spine is normal. Vertebral body heights are maintained. No acute displaced fracture. Mild multilevel degenerative disc disease of the thoracic spine. Lumbar spine: Comparison is made with CT of the abdomen pelvis dated 05/24/2024. The alignment of the lumbar spine is normal. Vertebral body heights are maintained. No acute displaced fracture. Multilevel degenerative disc disease of the lumbar spine, greatest and moderate to severe at L5-S1, with mild lower lumbar facet osteoarthritis at that level. Aortic atherosclerosis. Procedure Note Srinivas Kline MD - 08/27/2025 EXAMINATION: XR SPINE THORACIC 3 VIEWS, XR SPINE LUMBAR 4 OR MORE VIEWS, XR SPINE CERVICAL COMPLETE 4 OR 5 VW HISTORY: Chronic neck, mid back and low back pain FINDINGS: Cervical spine: Comparison is made with CT of the neck dated 02/09/2021. There is mild anterolisthesis of C4 on C5. Vertebral body heights are maintained. No acute displaced fracture. Multilevel degenerative disc disease of the cervical spine, greatest and mild at C5-C7. Multilevel facet and uncovertebral arthropathy causing up to mild to moderate right greater than left osseous neuroforaminal narrowing. The prevertebral soft tissues are normal. Thoracic spine: Comparison is made with CT of the abdomen pelvis dated 05/24/2024. The alignment of the thoracic spine is normal. Vertebral body heights are maintained. No acute displaced fracture. Mild multilevel degenerative disc disease of the thoracic spine. Lumbar spine: Comparison is made with CT of the abdomen pelvis dated 05/24/2024. The alignment of the lumbar spine is normal. Vertebral body heights are maintained. No acute displaced fracture. Multilevel degenerative disc disease of the lumbar spine, greatest and moderate to severe at L5-S1, with mild lower lumbar facet osteoarthritis at that level. Aortic atherosclerosis. IMPRESSION: 1. Multilevel degenerative disc disease of the cervical spine, greatest and mild at C5-C7, with mild anterolisthesis of C4 on C5. 2. Multilevel degenerative disc disease of the thoracic and lumbar spine, greatest and moderate to severe L5-S1. Electronically signed by: Srinivas Kline MD Mukund Castellanos DEPUTY GENERAL COUNSEL IMG XR PROCEDURES Final Result * CT Lung Cancer Screening (08/22/2025 9:25 AM CDT) Anatomical Region Laterality Modality Chest N/A Computed Tomogra phy 08/22/2025 4:43 PM CDT Impressions 08/22/2025 4:43 PM CDT 1. LungRADS Category 1 (negative) . Recommend Low dose Screening CT of chest in 12 months. 2. Mild emphysema. Mosaic attenuation may be secondary to small airway disease. LungRADS Categories: 1 - Negative (no nodules, or only benign calcified or fat-containing nodules) 2 - Benign Appearance or Behavior (nodules with very low likelihood of becoming a clinically active cancer due to size or lack of growth) 3 - Probably Benign (probably benign findings-short term follow up suggested; includes nodules with a low likelihood of becoming a clinically active cancer) 4A,4B,4X - Suspicious (category 3 or 4 nodules with findings for which additional diagnostic testing and/or tissue sampling is recommended) S - Other (clinically significant or potentially clinically significant findings (non-lung cancer) C - Prior Lung Cancer (modifier for patients with a prior diagnosis of lung cancer who return to screening) Electronically signed by: Jose R Clark M.D. Narrative 08/22/2025 4:43 PM CDT EXAMINATION: Lung cancer screening CT of the Chest without intravenous contrast HISTORY: Lung Cancer Screening TECHNIQUE: Low radiation dose chest protocol. No intravenous contrast. Reconstructed slice width 1.[address] Dose Index 2.56 mGy. Dose-length product 37.1 mGy-cm. COMPARISON: CT chest, abdomen and pelvis dated 05/24/2024 FINDINGS: Lung nodules or findings of lung cancer: None Smoking related lung disease: There is a background of underlying mild emphysema. Mild bronchial wall thickening to the lower lobes bilaterally is seen. Mild diffuse mosaic attenuation may relate to underlying small airway disease. Other findings: Myskm-[id number]-pyitvyqx hiatal hernia. Procedure Note Jose R Clark MD - 08/22/2025 EXAMINATION: Lung cancer screening CT of the Chest without intravenous contrast HISTORY: Lung Cancer Screening TECHNIQUE: Low radiation dose chest protocol. No intravenous contrast. Reconstructed slice width 1.[address] Dose Index 2.56 mGy. Dose-length product 37.1 mGy-cm. COMPARISON: CT chest, abdomen and pelvis dated 05/24/2024 FINDINGS: Lung nodules or findings of lung cancer: None Smoking related lung disease: There is a background of underlying mild emphysema. Mild bronchial wall thickening to the lower lobes bilaterally is seen. Mild diffuse mosaic attenuation may relate to underlying small airway disease. Other findings: Ptbzo-do-wkxmhrgo hiatal hernia. IMPRESSION: 1. LungRADS Category 1 (negative) . Recommend Low dose Screening CT of chest in 12 months. 2. Mild emphysema. Mosaic attenuation may be secondary to small airway disease. LungRADS Categories: 1 - Negative (no nodules, or only benign calcified or fat-containing nodules) 2 - Benign Appearance or Behavior (nodules with very low likelihood of becoming a clinically active cancer due to size or lack of growth) 3 - Probably Benign (probably benign findings-short term follow up suggested; includes nodules with a low likelihood of becoming a clinically active cancer) 4A,4B,4X - Suspicious (category 3 or 4 nodules with findings for which additional diagnostic testing and/or tissue sampling is recommended) S - Other (clinically significant or potentially clinically significant findings (non-lung cancer) C - Prior Lung Cancer (modifier for patients with a prior diagnosis of lung cancer who return to screening) Electronically signed by: Jose R Clark M.D. Marline Thomas DEPUTY GENERAL COUNSEL IMG CT PROCEDURES Final Res ult * Colonoscopy (06/09/2024 9:41 AM CDT) Anatomical Region Laterality Modality Other Narrative Procedure Note Kelli Rossi MD - 06/09/2024 9:41 AM CDT [facility] Patient Name: Ganga Wyatt Procedure Date: 06/09/2024 9:41 AM Date of : 1975 Admit Type: Outpatient Age: 48 Gender: Female Attending MD: Kelli Rossi M.D. Room: [facility] ENDOSCOPY ROOM 1 Note Status: Finalized Patient Profile: This is a 48 year old female. No family history of colon cancer. Noted complaints of chronicconstipation. Procedure: Colonoscopy Indications: Screening for colorectal malignant neoplasm, Thisis the patient's first colonoscopy Referring MD: Ayad Sutherland, DEPUTY GENERAL COUNSEL Providers: Kelli Rossi M.D. Impression: - Overall colon preparation was inadequate - One 5 mm polyp in the ascending colon, removedwith a jumbo cold forceps. Resected and retrieved. - One 5 mm polyp in the proximal transverse colon, removed with a jumbo cold forceps. Resected and retrieved. - One 6 mm polyp in the descending colon, removedwith a jumbo cold forceps. Resected and retrieved. Clip(MR conditional) was placed. Clip piece meat trimmer: Busap. - Internal hemorrhoids. Recommendation: - Await pathology results. - Repeat colonoscopy in 2 years for surveillancewith a 3 days' colon preparation. - Continue present medications. Medicines: Monitored Anesthesia Care Complications: No immediate complications. Estimated Blood Loss: Estimated blood loss: none. Procedure: Pre-Anesthesia Assessment: - Prior to the procedure, a History and Physicalwas performed, and patient medications and allergieswere reviewed. The patient's tolerance of previous anesthesia was also reviewed. The risks andbenefits of the procedure and the sedation options and risks were discussed with the patient. All questions were answered, and informed consent was obtained. Prior Anticoagulants: The patient has taken noanticoagulant or antiplatelet agents. ASA Grade Assessment: Per anesthesia note and evaluation. After reviewing the risks and benefits, the patient was deemed in satisfactory condition to undergo the procedure. The benefits, risks and alternatives of theprocedure and sedation were discussed and informed consentwas obtained. All questions were answered. Please referto the signed informed consent document in the medical record. The bowel preparation used was Miralax via extended prep with split dose instruction. Thebowel preparation used was bisacodyl tablets via extended prep with split dose instruction. The scope waspassed under direct vision. The Pediatric Colonoscope PCF-H190L [id number] was introduced through the anus and advanced to the the cecum, identified by appendiceal orifice and ileocecal valve. Thequality of the bowel preparation was inadequate. Bowel prep was administered using a split dose. Findings: The perianal and digital rectal examinations were normal. The cecum appeared normal. A 5 mm polyp was found in the ascending colon. The polyp was sessile. The polyp was removed with a jumbo cold forceps. Resection andretrieval were complete. A 5 mm polyp was found in the proximal transverse colon. The polypwas flat. The polyp was removed with a jumbo cold forceps. Resection and retrieval were complete. A 6 mm polyp was found in the descending colon. The polyp wassessile. The polyp was removed with a jumbo cold forceps. Resection andretrieval were complete. To prevent bleeding after the polypectomy, onehemostatic clip was successfully placed (MR conditional). Clip piece meat trimmer:Busap. There was no bleeding at the end of the procedure. Internal hemorrhoids were found during retroflexion. The hemorrhoids were small. Electronically signed by Kelli Rossi M.D. Kelli Rossi M.D. 06/09/2024 12:16:20 PM Number of Addenda: 0 Note Initiated On: 06/09/2024 9:41 AM Procedure Code(s): --- Professional --- 46140, Colonoscopy, flexible; with biopsy, single or multiple Diagnosis Code(s): --- Professional --- Z12.11, Encounter for screening for malignant neoplasm of colon K64.8, Other hemorrhoids D12.2, Benign neoplasm of ascending colon D12.3, Benign neoplasm of transverse colon (hepatic flexure orsplenic flexure) D12.4, Benign neoplasm of descending colon CPT copyright 2020 [employer]. All rights reserved. The codes documented in this report are preliminary and upon hadoop analyst reviewmay be revised to meet current compliance requirements. Recognized by the [employer] for promoting quality in endoscopy us Kelli Rossi MD ENDOSCOPY PROCEDURES Final Result * (ABNORMAL) Screening Mammogram Bilateral W [place] (07/07/2023 2:35 PM CDT) Anatomical Region Laterality Modality Breast Bilateral Mammography 07/07/2023 2:49 PM CDT Impressions 07/07/2023 2:49 PM CDT 1. Indeterminate left breast asymmetry. Recommend diagnostic mammogram and possible ultrasound of the left breast for further evaluation. 2. No mammographic evidence of malignancy in the right breast. Recommend screening mammography of the right breast in one year. BI-RADS: 0 - Additional imaging evaluation is necessary. Electronically signed by: Mane Galdamez M.D. Narrative 07/07/2023 2:49 PM CDT EXAMINATION: SCREENING MAMMOGRAM BILATERAL W EDENILSON ORDERING HEALTHCARE PROVIDER: SELF SCREENING MAMMOGRAM HISTORY: Routine screening mammography. COMPARISON: 07/19/2020, 11/13/2016, 12/09/2009 TECHNIQUE: CC and MLO views of the bilateral breasts were obtained with digital technique using breast tomosynthesis with C view. Computer aided detection was utilized. FINDINGS: DENSITY: There are scattered fibroglandular elements in the bilateral breasts. BREASTS: There is an asymmetry in the left breast on the MLO view, located superior to the posterior nipple line at a mid to posterior depth. There are several benign scattered calcifications in both breasts. There is no other suspicious finding in either breast on mammogram. us Self Screening Mammogram IMG MAMMO PROCEDURES Fi nal Result from Last 3 Months or Most Recently Relevant to Health Maintenance Insurance Advance Directives For more information, please contact: [phone] * Full Code (Latest Code Status on File) Date Activated Date Inactivated Comments 05/22/2025 12:36 PM 05/22/2025 7:22 PM * Full Code Date Activated Date Inactivated Comments 05/22/2025 12:36 PM 05/22/2025 12:36 PM * Full Code Date Activated Date Inactivated Comments 06/09/2024 9:36 AM 06/09/2024 4:49 PM * Full Code Date Activated Date Inactivated Comments 06/09/2024 9:36 AM 06/09/2024 9:36 AM * Full Code Date Activated Date Inactivated Comments 05/03/2024 8:20 AM 05/04/2024 5:13 AM Care Teams Fingernail Sculptor Relationship Specialty Start Date End Date Kimani Crocker MD [address] [place] [address] PCP - General Internal Medicine 05/14/25 Mj Leigh MD Consulting Physician Cardiology 10/14/20 José Miguel Blake, SERENE [address] [place] [id number] Surgeon Oral Surgery 02/23/21
[2025-09-02 12:18] VITALS: BP 125/67; PULSE 114; RESP 16; TEMP 36.6; O2SAT 98
--- NOTE | 2025-09-02 12:42 | ED_ITS ---
HPI - Dental/Oral General Chief complaint: Dental/Oral Stated complaint: Tooth pain Time Seen by Provider: 09/02/25 12:25 Source: patient and RN notes reviewed Mode of arrival: ambulatory Limitations: no limitations History of Present Illness HPI Narrative: 50-year-old female presents Express Care complaining of right upper dental pain and swelling. Patient recently had teeth extracted said all her teeth have been removed. Patient reports pain and swelling to right upper mouth. Patient has completed a course amoxicillin from the dentist. Patient has a follow-up next month with a dentist. Patient has any fevers advice from a chills, nausea vomiting, difficulty clearing secretions, difficulty breathing, dysphagia, or any other symptoms. Patient taking Tylenol ibuprofen without relief. Related Data Home Medications ?Medication ?Instructions ?Recorded ?Confirmed ?Last Taken ?Type albuterol sulfate 90 mcg/actuation inhalation 08/01/22 Unknown History aerosol inhaler atorvastatin 20 mg tablet mg 08/01/22 Unknown History digoxin 125 mcg (0.125 mg) tablet mcg 08/01/22 Unknow n History doxepin 25 mg capsule mg 08/01/22 Unknown History fluticasone 500 mcg-salmeterol 50 inhalation 08/01/22 Unknown History mcg/dose blistr powdr for inhalation (Wixela Inhub) ipratropium bromide 17 inhalation 08/01/22 Unknown History mcg/actuation HFA aerosol inhaler (Atrovent HFA) lamotrigine 200 mg tablet mg 08/01/22 Unknown History metoprolol tartrate 25 mg tablet mg 08/01/22 Unknown History omeprazole 20 mg capsule,delayed mg 08/01/22 Unknown History release prazosin 2 mg capsule mg 08/01/22 Unknown History quetiapine 300 mg tablet,extended mg PO 08/01/22 Unkn own History release 24 hr ranolazine 500 mg tablet,extended mg PO 08/01/22 Unkn own History release,12 hr ropinirole 2 mg tablet mg 08/01/22 Unknown History budesonide 160 mcg-glycopyr 9 inh inhalation 05/26/24 Unknown History mcg-formot 4.8 mcg/actuation HFA inhaler (Breztri Aerosphere) cariprazine 6 mg capsule (Vraylar) mg 05/26/24 Unknow n History famotidine 40 mg tablet mg 05/26/24 Unknown History paroxetine HCl 30 mg tablet mg PO 05/26/24 Unknown Hi story Allergies Allergy/AdvReac Type Severity Reaction Status Date / Time Benzodiazepines AdvReac Other Verified 09/02/25 12:17 Review of Systems Review of Systems: CONSTITUTIONAL: Denies fever, chills, or sweats. EYES: Denies visual changes, redness, or discharge. ENT: Denies rhinorrhea, congestion, sore throat, trismus, difficulty clearing secretions, dysphagia, or otalgia. MOUTH: Positive for dental pain. CARDIOVASCULAR: Denies chest pain, palpitations, or edema. RESPIRATORY: Denies cough or dyspnea. GASTROINTESTINAL: Denies abdominal pain, nausea, vomiting, or diarrhea. GENITOURINARY: Denies dysuria or hematuria. SKIN: Denies rash or itching. MUSCULOSKELETAL: Denies back pain, joint pain, or myalgia. NEUROLOGIC: Denies headache, numbness, or weakness. PSYCHIATRIC: Denies anxiety or depression. All other systems reviewed are negative, except as documented in HPI. [facility] Past Medical History Medical History High cholesterol Comments At the time of my signature, I reviewed and agree with the nursing past medical, surgical, social, and family history. There is no relevant family history pertinent to the patient complaint. Exam Narrative: GENERAL: This is a well-nourished, well-developed adult, in no apparent distress. They are non ill-appearing, nontoxic appearing. HEAD: normocephalic, atraumatic. EYES: Sclera clear/white. Conjunctiva normal. Vision is grossly intact. Extraocular movements intact EARS: External ears normal, Hearing grossly intact. NOSE: External nose normal THROAT: Mucous membranes moist, posterior pharynx clear, without erythema or swelling. Uvula midline. OROPHARYNX: Teeth are missing. Right upper gum erythematous, appears to be retained root to right upper gum is tender to palpate. No area of fluctuance, induration, no exudate. Tongue midline. No pain or swelling of the tongue. NECK: Neck supple, non-tender without lymphadenopathy, masses or thyromegaly. CARDIOVASCULAR: Regular rate and rhythm RESPIRATORY: Respiratory rate normal, respiratory effort nonlabored, no respiratory distress SKIN: warm, Dry, intact with no suspicious lesions or rash, good texture and turgor. NEURO: awake, alert, and oriented to person, place and time. There were no obvious focal neurologic abnormalities. EXTREMITIES: No joint tenderness, effusion, or edema noted. BACK: Nontender without deformity. Course Course Emergency Course: Portions of this record may have been created with voice recognition software Level of Care: Express Care Visit Vital Signs Vital signs: Reviewed MDM - Dental/Oral MDM Narrative Medical decision making narrative: Appears patient has dental abscess. Patient is no longer taking amoxicillin. Will treat with clindamycin. Also give her viscous lidocaine for pain. Discussed physical exam findings. Advised supportive measures and signs/symptoms to go to the ER. Pt is appropriate for outpt treatment and f/u. Differential Diagnosis Differential diagnosis: Likely gingival abscess, dental caries, toothache, dental abscess and fracture of tooth Critical Care Time Critical Care Time Critical Care Time: No Discharge Plan Discharge Clinical Impression: Dental abscess Patient Disposition: Home Condition: Stable Instructions: Antibiotic Form, Dental Abscess (ED) Additional Instructions: Take the antibiotics as directed. You may alternate Tylenol and ibuprofen as needed for pain. Follow instructions on the bottle. You may use viscous lidocaine as needed for pain in your mouth. Use a Q-tip and apply directly to the affected area. [place] your teeth and gums soft toothbrush twice a day. You may use mouthwash after each brushing as well. Follow-up with dentist next week. He developed worsening swelling, fevers, difficulty swallowing or breathing, difficulty opening her jaw, swelling under the tongue, or any other concerns please go to the ER immediately. Patient Language: Yakut Prescriptions: New clindamycin HCl [Cleocin HCl] 150 mg capsule 450 mg PO TID 10 Days Qty: 90 0RF lidocaine HCl [Lidocaine Viscous] 2 % solution 1 applic mucous membrane TID PRN (Reason: pain) Qty: 100 0RF Rx Instructions: apply to affected tooth clindamycin HCl [Cleocin HCl] 150 mg capsule 450 mg PO TID 10 Days Qty: 90 0RF lidocaine HCl [Lidocaine Viscous] 2 % solution 1 applic mucous membrane TID PRN (Reason: pain) Qty: 100 0RF Rx Instructions: apply to affected tooth No Action atorvastatin 20 mg tablet lamotrigine 200 mg tablet doxepin 25 mg capsule ropinirole 2 mg tablet omeprazole 20 mg capsule,delayed release(DR/EC) digoxin 125 mcg (0.125 mg) tablet prazosin 2 mg capsule quetiapine 300 mg tablet extended release 24 hr PO fluticasone propion-salmeterol [Wixela Inhub] 500-50 mcg/dose blister with device INHALATION albuterol sulfate 90 mcg/actuation HFA aerosol inhaler INHALATION metoprolol tartrate 25 mg tablet Atrovent HFA 17 mcg/actuation HFA aerosol inhaler INHALATION ranolazine 500 mg tablet extended release 12 hr PO famotidine 40 mg tablet paroxetine HCl 30 mg tablet PO Vraylar 6 mg capsule Breztri Aerosphere 160-9-4.8 mcg/actuation HFA aerosol inhaler INHALATION cephalexin 500 mg capsule 500 mg PO Q12H Qty: 14 0RF Follow-up/Referrals: Kimani Crocker MD [Primary Care Provider, Hospitalist] Time of Disposition: 12:34
== END 2025-09-02 12:40 | disposition home or self-care (01) ==
PROVIDERS: PCP Internal Medicine
DX: K04.7 Periapical abscess without sinus (principal); E78.00 Pure hypercholesterolemia, unspecified
CPT/HCPCS: 99213; G0463